=== PATIENT | female | born 1975 | race Caucasian/White ===

== ENCOUNTER 2024-05-16 20:55 | Inpatient (IN) | payer BC, SELFPAY ==
[2024-05-16 17:38] VITALS: BP 119/79
[2024-05-16 18:19] LABS: % Basophils 0.1 % (0-2); % Immature Granulocytes 1.4 % (0-0.5); % Lymphocytes 13.5 % (20.5-51.1); % Monocytes 4.1 % (1.7-9.3); % Neutrophils 80.9 % (42.2-75.2); Absolute Immature Granulocytes 0.1 10^3/uL (0-0.05); Absolute Lymphocytes 1.3 10^3/uL (1.2-3.4); Absolute Monocytes 0.4 10^3/uL (0.1-0.6); Absolute Neutrophils 7.5 10^3/uL (1.4-6.5); Hematocrit 30.6 % (37.0-47.0); Hemoglobin 10.8 g/dL (12.0-16.0); Mean Corp Hgb Conc. 35.3 g/dL (33.0-37.0); Mean Corpuscular Hgb 36.5 pg (27.0-31.0); Mean Corpuscular Volume 103.4 fL (81.0-99.0); Mean Platelet Volume 9.8 fL (7.4-10.4); Nucleated Red Blood Cells % 0 %; Platelet Count 282 10^3/uL (130-400); Red Blood Cell Count 2.96 10^6/uL (4.20-5.40); Red Cell Dist. Width 14.8 % (11.5-14.5); White Blood Cell Count 9.2 10^3/uL (4.8-10.8)
[2024-05-16 18:21] LABS: COVID-19 Antigen Negative (Negative)
[2024-05-16 18:38] LABS: Albumin 4.3 g/dl (3.5-5.0); Alkaline Phosphatase 188 U/L (38-126); Blood Urea Nitrogen 15 mg/dl (7-17); Calcium 10.2 mg/dl (8.4-10.2); Carbon Dioxide 17 mmol/L (22-30); Chloride 89 mmol/L (98-107); Glucose 122 mg/dl (70-99); Potassium 3.5 mmol/L (3.5-5.1); Sodium 127 mmol/L (135-145); Total Bilirubin 1.2 mg/dl (0.2-1.3); Total Protein 6.5 g/dl (6.3-8.2); eGFR > 60.00
[2024-05-16 18:48] LABS: ALT (SGPT) 44 U/L (0-35); AST (SGOT) 52 U/L (14-36)
[2024-05-16 18:59] VITALS: BMI 28.3
[2024-05-16 19:01] VITALS: BP 107/83
--- NOTE | 2024-05-16 19:15 | ED.GENMED ---
History of Present Illness
General
Chief Complaint: Dizziness
Source: patient
Time Seen by Provider: 05/16/24 18:50
History of Present Illness
History of Present Illness:
This patient is a 49-year-old female who says that about 2 weeks ago she started to feel like she had the flu described as fatigue, lightheadedness, and generalized malaise. She felt like she spontaneously got better, but then again about a week
ago she again developed the same symptoms. She also notes associated productive cough chest discomfort anorexia and nonbloody vomiting. She had a telehealth appointment on Friday and was prescribed prednisone and amoxicillin. Since that time,
she does not feel like she is getting any better. She is also having episodes of lightheadedness which is preventing her from being able to go to work. She denies abdominal pain, urinary symptoms, headache, neck pain, photophobia, rash, or other
symptoms.
Past History
Past History
ED Past Medical History: Arrthythmia (tachycardia ), Asthma, HTN and Psychiatric (Anxiety and depression.)
ED Past Surgical History: (X2) and Other ( wisdom teeth removal, and breast augmentation )
Social History
Tobacco: Smoker
Alcohol: Daily (2-3)
Drug: None
Personal:
Living: with family
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
Family History
Family History: Other (Noncontributory)
Phy Exam
Physical Exam
Physical Exam:
GENERAL: Alert , in no apparent distress
EYE: pupils equal and reactive
NECK: Supple, no significant adenopathy.
ENT: o/p clr, mm dry
CARDIAC: Regular rate and rhythm .
LUNGS: Clear breath sounds bilaterally, no acute respiratory distress, no wheezes/rales/rhonchi
ABDOMEN: Soft, without focal tenderness, no r/g, no cvat
NEUROLOGICAL: Alert and oriented, no focal neuro deficits
SKIN: Warm and dry, skin intact.
MUSCULOSKELETAL: No edema, well perfused.
PSYCH: Normal and appropriate interaction.
Course
Orders/Labs/Results
Orders:
Orders
05/16/24 Breakfast
Regular
At Your Request: Limited Participation
Fluid Restriction: 1440 mL/day (48 oz)
05/16/24 17:33
EKG [Electrocardiogram (*1)] Urgent
Reason for Study: Vertigo / Dizzy
EKG- Treatment ONCE
05/16/24 17:46
Alcohol Urgent
B-Hydroxybutyrate Urgent
Comment: ADD ON
COVID-19 Antigen Urgent
Source: Nasal Swab
Complete Blood Count/With Diff Urgent
Comprehensive Metabolic Panel Urgent
Glycohemoglobin (HgbA1c) Urgent
Iron Urgent
Comment: ADD ON
Magnesium Urgent
Comment: ADD ON
Phosphorus Urgent
Comment: ADD ON
Total Iron Binding Urgent
Comment: ADD ON
Influenza A+B Rapid Molecular Urgent
SARAH Source: Nasal Swab
Specimen Description:
05/16/24 19:25
0.9% Sodium Chloride 500 ml [Nss] 500 ml IV BOLUS
05/16/24 19:47
Osmolality, Random Urine Urgent
Date Specimen was Collected: 05/17/24
Time Specimen was Collected: 04:10
Urine Sodium Urgent
Date Specimen was Collected: 05/17/24
Time Specimen was Collected: 04:10
05/16/24 20:07
Urinalysis Reflex To Culture Urgent
Date Specimen was Collected: 05/17/24
Time Specimen was Collected: 04:09
05/16/24 20:16
Ipratropium/Albuterol Sulfate [Duoneb] 3 ml INH R NOW STA
Lorazepam [Ativan] 0.5 mg PO NOW STA
05/16/24 20:34
Admit/Transfer Patient As Directed
Co-Sign Provider:
Level of Care: Inpatient admission
Assign to:: Telemetry
Physician / Group: Mike
Diagnosis: Hyponatremia, Anion Gap Acidosis, Anemia
Reason for Telemetry: Arrhythmia
Date to Stop Telemetry: 05/19/24
Time to Stop Telemetry: 11:00
Reason for Hospitalization: Hyponatremia, Anion Gap Acidosis, Anemia
Expected length of stay greater than two midnights?: Yes
ELOS- Estimated Length of Stay in days: 3
I certify the patient meets the requirements for IP care: Yes
PRN Pain Medication Management As Directed
May give lesser potent ordered pain med per pt: Yes
preference::
Protocol:: Medication orders for pain may be administered in a
manner that supports deferring to patient preference
when the pt is:
- Requesting an ordered lesser potent pain medication.
Least to most potent pain medications are defined
as: acetaminophen < NSAID < tramadol < opioids
(morphine, oxycodone, hydromorphone).
- Requesting a lesser dose of the same medication IF
ORDERED.
- Requesting a less intrusive route of administration
if both routes are prescribed by the provider (PO <
IV).
05/16/24 20:35
CXR2 [CR Chest - 2 Views ] Urgent
Comment:
Reason For Exam: Cough, Hyponatremia
05/16/24 20:36
Code Status As Directed
Resuscitation Status: Full Code
05/16/24 22:39
0.9% Sodium Chloride 1000 ml [Nss] 1,000 ml IV 100 mls/hr
0.9% Sodium Chloride [Nss (Preservative Free)] See Protocol IV PRN PRN
Acetaminophen [Tylenol] 650 mg PO Q4HPRN PRN
Albuterol Nebs [Ventolin Nebules] 2.5 mg INH R Q4HPRN PRN
FOLic ACID [Folvite] 1 mg 0.9% Sodium Chloride 50 ml [Nss] 50 ml IV DAILYPRN
Lorazepam [Ativan] 1 mg IV Q1HPRN PRN
Lorazepam [Ativan] 1 mg PO Q2HPRN PRN
Lorazepam [Ativan] 2 mg IV Q1HPRN PRN
Ondansetron Injectable [Zofran] 4 mg IV Q6HPRN PRN
05/16/24 22:39
Case Management Consult Once
Case Management Consult: Other
Comment: Substance abuse counseling
DIETARY CONSULT Routine
Reason for Consult: Nutrition support, possible refeeding guidelines
NEPHROLOGY CONSULT Routine
Consulting Provider: Akash Lozano
Was physician already notified: Yes
Reason for consult: Hyponatremia, Anion Gap Acidosis
Urine Drug Abuse Screen Routine
Date Specimen was Collected: 05/17/24
Time Specimen was Collected: 04:10
Activity As Directed
Activity Level: Ambulate
With Assistance
EKG with chest pain [ECG as needed] As Directed
ECG as needed for:: Chest Pain
I/O [Intake/ Output] As Directed
Frequency: Per unit guidelines
MSAS SCORE As Directed
MSAS Score 0-4: Repeat MSAS every 2 hours until 0-4 for three consecutive assessments, then every 4 hours x 48
hours.
MSAS Score 5-7: For MILD withdrawl symptoms. Repeat MSAS and RASS every 2 hours
MSAS Score 8-11: For MODERATE withdrawal symptoms. Repeat MSAS and RASS every 1 hour. Consider ICU or IMU
level of care.
MSAS Score > 11: For SEVERE withdrawal symptoms. Repeat MSAS and RASS every 1 hour. Notify provider, consider
ICU level of care.
MSAS Additional Instructions: If no improvement or no decrease in score from severe to moderate within 12
hours, consult psychiatry
MSAS Notify Provider: Notify provider if patient requires more than 10 mg of Lorazepam in eight hour period.
Orthostatic Vital Signs As Directed
Orthostatic VS Frequency: BID
Pneumatic Compression Sleeves As Directed
Type: Knee high
Vital Signs As Directed
Frequency: Per unit guidelines
Weight As Directed
Frequency: Daily
Oxygen Therapy [O2 Therapy] [RESP] Routine
Titrate/Wean O2 to maintain O2 sat greater than (%): 94
DX Deep Vein Thrombosis Video Routine
05/16/24 22:48
B12 [Vitamin B12] Routine
Bordetella Pertussis IgA,G,M [S] Routine
Folate Routine
Lactate Level [Lactic Acid] Urgent
TSH Reflex To Free T4 Routine
05/17/24 00:14
BMP [Basic Metabolic Panel] Routine
05/17/24 05:40
Basic Metabolic Panel IN AM
Cortisol, Random IN AM
05/17/24 05:41
ACTH [Adrenocorticotropic Hormone] [S] IN AM
Complete Blood Count/No Diff IN AM
05/17/24 08:00
Budesonide/Formoterol 160/4.5 [Symbicort 160/4.5 Mcg Inhaler] 2 puff INH R BID
FOLic ACID [Folvite] 1 mg PO DAILY
Pantoprazole [Protonix] 40 mg PO DAILY
Thiamine Injection 200 mg IV Q12
05/19/24 11:00
DC Protocol for Telemetry ONCE
05/20/24 08:00
Thiamine HCl [Vitamin B1] 100 mg PO BID
Abnormal Lab Results
05/16/24
17:46
RBC 2.96 L 10^6/uL
(4.20-5.40)
Hgb 10.8 L g/dL
(12.0-16.0)
Hct 30.6 L %
(37.0-47.0)
MCV 103.4 H fL
(81.0-99.0)
MCH 36.5 H pg
(27.0-31.0)
RDW 14.8 H %
(11.5-14.5)
Abs Immat Gran (auto) 0.1 H 10^3/uL
(0-0.05)
Absolute Neuts (auto) 7.5 H 10^3/uL
(1.4-6.5)
Immature Gran % 1.4 H %
(0-0.5)
Neutrophils % 80.9 H %
(42.2-75.2)
Lymphocytes % 13.5 L %
(20.5-51.1)
Sodium 127 L mmol/L
(135-145)
Chloride 89 L mmol/L
(98-107)
Carbon Dioxide 17 L mmol/L
(22-30)
Glucose 122 H mg/dl
(70-99)
TIBC 178 L ug/dl
(265-497)
% Saturation 93 H %
(20-50)
AST 52 H U/L
(14-36)
ALT 44 H U/L
(0-35)
Alkaline Phosphatase 188 H U/L
(38-126)
05/16/24 17:46
05/16/24 17:46
Vital Signs
Initial and Last Documented VS:
Initial Vital Signs
Temp Pulse Resp BP Pulse Ox
97.9 F 128 16 119/79 99
05/16/24 17:38 05/16/24 17:38 05/16/24 17:38 05/16/24 17:38 05/16/24 17:38
Last Documented Vital Signs
Temp Pulse Resp BP Pulse Ox
98.3 F 73 18 111/74 98
05/18/24 11:55 05/18/24 11:55 05/18/24 11:55 05/18/24 11:55 05/18/24 11:55
*Critical Care Note
Total Time (30-74mins, 75-104mins- exclusive of procedures): Not Applicable
Update Note
Update Note:
Patient presents to the Emergency Department with ____fatigue, dizziness
Number and Complexity of Problems Addressed at the Encounter
� Chronic conditions affecting care:
� Acute Exacerbation and/or Progression of Chronic Illness:
� Differential Diagnosis includes: But not limited to influenza, COVID, viral illness, electrolyte disturbance, etc. etc.
Amount and/or Complexity of Data to be Reviewed and Analyzed
� I performed an independent evaluation of and my interpretation is:
EKG: Read by me, sinus tachycardia, no acute ischemia
CT:
Xrays:
Laboratory Studies: New anemia at 10.8 in comparison to March 2017, new hyponatremia 127 with low bicarb and chloride mild transaminitis, COVID and flu negative
Other:
� Review of other/old records reveals:
� Clinical information was obtained by an independent historian:
� Prescriptions/Medications Considered but not given:
� Further testing considered but not performed:
Risk of Complications and/or Morbidity or Mortality of Patient Management
� Social determinants of health affecting care:
� Discussion with other providers (PCP, Hospitalists, Consultants, etc):
� Escalation of care including admission/observation vs risk of discharge considered: Patient with flulike symptoms, new onset hyponatremia of unclear etiology, not related to any medications she is taking. Will check chest
x-ray, rule out pneumonia which could contribute to hyponatremia. Patient noted to be dehydrated and tachycardic as well. Will discuss with nephrology regarding 3% initiation, admission to hospitalist.
Case discussed with Dr. Lozano via [place] text, recommends pausing on 3% until urine results come back. This test has been ordered, Dr. Dacosta updated via [place] text.
ED Attending Note
-
Portions of this chart may have been created with voice recognition software.� Occasional wrong word or��sound alike� substitutions may have occurred due to the inherent limitations of voice recognition software.
Discharge Plan
Departure
Patient Disposition: Admit
Date of Disposition: 05/16/24
Time of Disposition: 19:47
Admit to: Telemetry
Admit to doctor: mike
Presentation/result/management discussed w/ accepting MD/DO: Hospitalist
Condition: Fair
Discharge Problem:
Acute hyponatremia
Interventions
Interventions:
*Risk Screen - Suicide Last Done: 05/16/24 17:38
*General Assessment Last Done: 05/16/24 18:54
*Neglect/Abuse Screening Last Done: 05/16/24 17:38
ED- Fall Risk Assessment Last Done: 05/16/24 23:54
*ED COVID-19 Vaccine History Last Done: 05/16/24 22:56
*Nursing Disposition Last Done: 05/17/24 20:45
ED- Neurological Assessment Last Done: 05/16/24 18:58
ED- Cardiac Assessment Last Done: 05/17/24 20:44
ED Swallowing Screen Last Done: 05/16/24 20:33
Discharge Date and Time
Discharge Date/Time: 05/17/24 20:49
[2024-05-16 20:03] VITALS: BP 127/71
[2024-05-16] MEDS: NSS 500 IV (20:13)
[2024-05-16] MEDS: ATIVAN 0.5 MG PO (20:34)
[2024-05-16] MEDS: DUONEB 3 ML INH (20:34)
[2024-05-16 21:00] VITALS: BP 111/69
--- NOTE | 2024-05-16 21:22 | HPS.HSE ---
Family Physician
-
Family Physician: CHRISTY Newberry
Chief Complaint
-
Dizziness, Lightheaded, Weakness
History of Present Illness
Patient is a 49y F with PMH significant for asthma and anxiety who presents to ED complaining of generalized weakness, lightheadedness and fatigue. Patient states that she developed cough, chest congestion about 2 weeks ago. Multiple family
members were ill with similar symptoms. She felt that her symptoms improved; however, they then recurred about one week ago. She developed hacking cough, SOB with exertion, generalized weakness and fatigue. She reports increased heartburn
symptoms, poor appetite. Over the past 3 days she has had episodes of lightheadedness, dizziness and 'nearly passing out'. No actual syncope, fall, injury, etc.
Patient states that she has had very little to eat / drink. She has not been urinating very much. She has had nausea with emesis - but she describes this mostly as post-tussive emesis / 'coughing up mucus'.
No abdominal pain.
She was started on amoxicillin and prednisone on Friday of this week for her persistent cough, etc. She has not appreciated any improvement in her symptoms.
Medical History
Past Medical History
Past Medical History: Reports Other
Additional Past Medical History:
Asthma
Anxiety
Hypertension
Past Surgical History: Reports Other
Additional Past Surgical History:
Septoplasty / Sinus Surgery
Breast Augmentation
x 2
T&A
Social History
Tobacco: Smoker (Current every day smoker. Approx 20 pack years total use.)
Alcohol: Daily (2-3 glasses of wine every day.)
Drug: None
Personal:
Living: With Family
Family History
Family History: Not pertinent
Allergies / Home Medications
Allergies reflects when Allergies were last updated in [facility].
Home Medications with original date entered in [facility]
Allergy/Medication List:
Allergies
Allergy/AdvReac Type Severity Reaction Status Date / Time
aspirin Allergy wheezing Verified 05/16/24 17:38
NSAIDS (Non-Steroidal Allergy Shortness Verified 05/16/24 17:38
Anti-Inflamma of Breath
Ragweed *RETIRED-12/10/11 Allergy Unknown Verified 05/16/24 17:38
[Ragweed]
DOGS/CATS/HORSES Allergy Unknown Uncoded 05/16/24 17:38
DUST,DUST MITES Allergy Unknown Uncoded 05/16/24 17:38
FEATHERS Allergy Unknown Uncoded 05/16/24 17:38
GRASS Allergy Unknown Uncoded 05/16/24 17:38
POLLEN Allergy Unknown Uncoded 05/16/24 17:38
Home Medications
albuterol sulfate 90 mcg/actuation aerosol inhaler 2 puff inhalation R Q6HPRN PRN sob 05/16/24
amoxicillin 500 mg capsule 500 mg PO TID Infection 05/16/24
budesonide-formoterol HFA 160 mcg-4.5 mcg/actuation aerosol inhaler (Symbicort) 2 inh inhalation R BID Lung/Breathing Issues 05/16/24
bupropion HCl 300 mg 24 hr tablet, extended release (Wellbutrin XL) 300 mg PO DAILY Mental Health 05/16/24
lorazepam 0.5 mg tablet 0.5 mg PO DAILYPRN PRN anixety 05/16/24
losartan 100 mg tablet 100 mg PO DAILY Blood Pressure 05/16/24
prednisone 10 mg tablets in a dose pack 10 mg PO DIRECTED inflammation 05/16/24
Review of Systems
-
History Source: Patient
A 12 point ROS was completed and negative except as noted: Yes
Constitutional: Reports Fatigue and Chills; Denies Fever
EENT: Denies Sore Throat
Respiratory: Reports Cough and Trouble Breathing
Cardiac: Reports Syncope (lightheadedness / near syncope); Denies Chest Pain or Palpitations
Abdomen/GI: Reports Nausea and Vomiting; Denies Abdominal Pain, Diarrhea, Constipated, Bloody Stools or Black Stools
: Reports Other (Decreased urination.); Denies Dysuria, Frequency, Flank Pain or Bleeding
Musculoskeletal: Denies Joint Pain or Edema
Neurological: Reports Dizzy, Headache and Weakness; Denies Numbness
Psych: Denies Depression or Anxiety
Physical Exam
Vital Signs
Vital Signs
Temp Pulse Resp BP Pulse Ox
97.9 F 109 16 107/83 100
05/16/24 17:38 05/16/24 19:01 05/16/24 19:01 05/16/24 19:01 05/16/24 19:01
Physical Exam
General: Other (49y F in no acute distress.)
HEENT: Other (Rounded facies, exophthalmus. Thick neck.)
Respiratory: Clear; No Wheezes, Rales or Rhonchi
Cardiac: S1/S2 and Tachycardia; No Murmur
GI: Soft, Non Tender, Non Distended and Normal Bowel Sounds
Musculoskeletal: No Clubbing, No Cyanosis and No Edema
Neuro: AO x 3 and Nonfocal/grossly intact
Laboratory Results
-
05/16/24 17:46
05/16/24 17:46
Laboratory Results
Total Bilirubin 1.2 mg/dl (0.2-1.3) 05/16/24 17:46
AST 52 U/L (14-36) H 05/16/24 17:46
ALT 44 U/L (0-35) H 05/16/24 17:46
Alkaline Phosphatase 188 U/L (38-126) H 05/16/24 17:46
Impression/Plan
-
A/P: Patient is a 49y F with PMH significant for asthma and anxiety who presents to ED complaining of two weeks of 'flu symptoms' and several days of lightheadedness, weakness, etc.
Hyponatremia
- Admit for further evaluation and treatment.
- Suspect this is hypovolemic hyponatremia given poor PO intake, N/V, tachycardia / relative hypotension, etc.
- Urine studies are pending for confirmation.
- NSS for now and repeat labs in 4 hours and again in the AM.
- Adjust treatment based on Na values / urine studies (when available) / etc.
- Nephrology evaluation for additional recommendations.
- Patient has exam features consistent with underling endocrinopathy - check TFTs, cortisol, ACTH.
- Follow for clinical improvement with improvement in Na levels.
URI
- Recent cough / cold symptoms. COVID / Flu are negative.
- Check CXR - still pending.
- Not febrile, hypoxemic, etc at present.
- Would hold further amoxicillin / prednisone for now.
Asthma without Acute Exacerbation
- Stable. Lungs are clear on exam. No wheezing.
- Continue Symbicort maintenance inhaler.
- Albuterol nebs PRN.
- Hold further steroid for now as noted above.
Anion Gap Metabolic Acidosis
- Unclear etiology of acidosis. AG on admission = 21.
- B-OH normal. Lactate still pending.
- No suspicious medications, etc.
- Follow for changes in labs / lytes with volume replacement.
- Nephrology evaluation as noted above.
Macrocytic Anemia
- No noted blood loss per patient.
- Macrocytosis with daily EtOH use suspicious for B12 deficiency or similar.
- Check B12 / folate.
- Follow for changes in H&H or any evidence of bleeding.
Alcohol Use Disorder
- Daily EtOH use per patient with underlying anxiety, macrocytic anemia, abnormal LFTs, etc.
- Follow MSAS. Ativan PRN.
- Thiamine / folate supplementation.
Anxiety / Depression
- Hold Wellbutrin acutely given potential contribution to hyponatremia.
- Ativan PRN as noted above.
DVT Prophylaxis: SCDs
Code Status: Full
[2024-05-16 21:29] LABS: B-Hydroxybutyrate 0.12 mmol/L (0.02-0.27)
[2024-05-16 23:16] VITALS: BP 110/76
[2024-05-16 23:16] LABS: Lactic Acid 5.4 mmol/L (0.7-2.0)
[2024-05-16 23:17] LABS: Iron 167 ug/dl (37-170); Magnesium 1.8 mg/dl (1.6-2.3); Phosphorus 2.6 mg/dl (2.5-4.5)
[2024-05-16 23:18] VITALS: BP 110/76
[2024-05-16 23:19] LABS: Alcohol None Detected
[2024-05-16 23:26] LABS: Percent Saturation 93 % (20-50); Total Iron Binding Capacity 178 ug/dl (265-497)
[2024-05-17] VITALS (18 sets, daily range): BP systolic 84–134; BP diastolic 46–92; PULSE 96–108; BMI 27.6
[2024-05-17] MEDS: MELATONIN 5 MG PO ×2 (00:10→22:37)
[2024-05-17] MEDS: TUMS CHEWABLE TABLET 200 MG PO ×2 (00:10→22:36)
[2024-05-17] MEDS: NSS 1000 IV ×3 (00:10→21:21)
[2024-05-17 00:25] LABS: TSH Reflex To Free T4 0.43 uIU/ml (0.47-4.68)
[2024-05-17 00:42] LABS: Blood Urea Nitrogen 21 mg/dl (7-17); Calcium 9.3 mg/dl (8.4-10.2); Carbon Dioxide 18 mmol/L (22-30); Chloride 93 mmol/L (98-107); Estimated Creatinine Clearance 80 ml/min; Glucose 129 mg/dl (70-99); Potassium 3.5 mmol/L (3.5-5.1); Sodium 126 mmol/L (135-145); eGFR > 60.00
[2024-05-17 01:31] LABS: Folate 1.3 ng/ml (2.76-20); Vitamin B12 432 pg/ml (239-931)
[2024-05-17 01:46] LABS: Free T4 1.27 ng/dl (0.78-2.19)
[2024-05-17] MEDS: VENTOLIN NEBULES 2.5 MG INH (04:17)
[2024-05-17 04:28] LABS: Urine Albumin 1+ (Neg - Trace); Urine Bilirubin Negative (Negative); Urine Character Slightly Cloudy (Clear); Urine Color Yellow; Urine Glucose Negative (Negative); Urine Ketone Negative (Negative); Urine Leukocyte Negative (Negative); Urine Nitrite Negative (Negative); Urine Occult Blood 1+ (Negative); Urine Specific Gravity 1.005 (<1.030); Urine Urobilinogen Negative (Neg - 1+); Urine pH 6.5 (5.0-9.0)
[2024-05-17 04:30] LABS: Osmolality Urine 309 mOsm/kg (300-900)
[2024-05-17 04:40] LABS: Amphetamines Negative (Negative); Barbiturates Negative (Negative); Benzodiazepines Positive (Negative); Buprenorphine Negative (Negative); Cocaine Negative (Negative); Marijuana Negative (Negative); Methadone Negative (Negative); Methamphetamines Negative (Negative); Opiates Negative (Negative); Phencyclidine Negative (Negative); Tricyclic Antidepressants Negative (Negative)
[2024-05-17 04:58] LABS: Urine Sodium 7 mmol/L (30-90)
[2024-05-17 04:59] LABS: Fentanyl, Urine Negative (Negative)
[2024-05-17 05:12] LABS: Urine Squamous Cell >30 /LPF (Few)
[2024-05-17 05:14] LABS: Urine Bacteria Moderate (Negative); Urine White Cell 0-2 /HPF (0-5)
[2024-05-17 06:24] LABS: Hematocrit 26.3 % (37.0-47.0); Hemoglobin 9.5 g/dL (12.0-16.0); Mean Corp Hgb Conc. 36.1 g/dL (33.0-37.0); Mean Corpuscular Hgb 37.1 pg (27.0-31.0); Mean Corpuscular Volume 102.7 fL (81.0-99.0); Mean Platelet Volume 9.7 fL (7.4-10.4); Platelet Count 203 10^3/uL (130-400); Red Blood Cell Count 2.56 10^6/uL (4.20-5.40); Red Cell Dist. Width 14.9 % (11.5-14.5); White Blood Cell Count 7.1 10^3/uL (4.8-10.8)
[2024-05-17 06:25] LABS: Blood Urea Nitrogen 21 mg/dl (7-17); Calcium 9.4 mg/dl (8.4-10.2); Carbon Dioxide 17 mmol/L (22-30); Chloride 96 mmol/L (98-107); Estimated Creatinine Clearance 72 ml/min; Glucose 122 mg/dl (70-99); Potassium 3.7 mmol/L (3.5-5.1); Sodium 127 mmol/L (135-145); eGFR > 60.00
[2024-05-17 06:45] LABS: Cortisol, Random 6.1 ug/dl
[2024-05-17] MEDS: FOLVITE 1 MG PO (07:25)
[2024-05-17] MEDS: THIAMINE INJECTION 200 MG IV ×2 (07:25→19:49)
[2024-05-17] MEDS: PROTONIX 40 MG PO (07:25)
[2024-05-17] MEDS: SYMBICORT 160/4.5 MCG INHALER 2 PUFF INH (08:00)
[2024-05-17 09:02] LABS: Glycohemoglobin (HgbA1c) 4.7 % (4.0-5.6)
--- NOTE | 2024-05-17 09:21 | CM ---
CM following re: discharge planning.
CM consulted for substance abuse counseling.
Reviewed pt's chart, met with pt.
Pt is a 49 year old female, admitted with primary dx of Hyponatremia.
Pt reports she lives with and 2 sons 11 and 17 year of age in a 2 [address]house, 1 step to enter. Pt described herself as independent in all areas [employer], works, drives.
CM consulted for substance abuse counseling. Substance abuse counseling provided. Pt admitted drinking daily, drink of choice - wine, 2-3 glasses after work. Pt expressed her agreement to meet with [facility] team. A referral to [facility] made.
PCP: Shari Esparza
Pharmacy: [facility]
D/C plan: home with [facility] to follow. to transport at discharge.
CM will follow with discharge plan updates as hospitalization progresses
--- NOTE | 2024-05-17 09:28 | W.CON.NEPH ---
Consultation
-
Date/Time Consultation Requested: 05/17/2024 7:30 AM
Date/Time Consultation Performed: 05/17/2024 9:00 AM
Requesting Provider: Dr. Benson
Performing Provider: Dr. Calixto
Reason for Consultation: Hyponatremia/HTN
Medical History
-
Chief Complaint: Hyponatremia/HTN
History of Present Illness:
Patient is a 49y F with PMH significant for asthma(maintained on Symbicort ), HTN (on losartan)and anxiety (on lorazepam and Wellbutrin) who presented to ED complaining of generalized weakness, lightheadedness and fatigue. Patient states that
she developed cough, chest congestion about 2 weeks ago. Multiple family members were ill with similar symptoms. She felt that her symptoms improved; however, they then recurred about one week ago. She developed hacking cough, SOB with exertion,
generalized weakness and fatigue. She reports increased heartburn symptoms, poor appetite. Over the past 3 days she has had episodes of lightheadedness, dizziness and 'nearly passing out'. No actual syncope, fall, injury, etc.
Patient states that she has had very little to eat / drink. She has not been urinating very much. She has had nausea with emesis - but she describes this mostly as post-tussive emesis / 'coughing up mucus'.
She was started on amoxicillin and prednisone on Friday of this week for her persistent cough, etc. when she presented to the hospital her sodium was 126. Nephrology was consulted for hyponatremia last evening she was provided normal saline.
Past Medical History
Asthma
Anxiety
Hypertension
Septoplasty / Sinus Surgery
Breast Augmentation
x 2
T&A
Social History
Tobacco: Smoker
Alcohol: Daily
Family History
No CKD
Allergies / Home Medications
Allergy/AdvReac Type Severity Reaction Status Date / Time
aspirin Allergy wheezing Verified 05/16/24 17:38
NSAIDS (Non-Steroidal Allergy Shortness Verified 05/16/24 17:38
Anti-Inflamma of Breath
Ragweed *RETIRED-12/10/11 Allergy Unknown Verified 05/16/24 17:38
[Ragweed]
DOGS/CATS/HORSES Allergy Unknown Uncoded 05/16/24 17:38
DUST,DUST MITES Allergy Unknown Uncoded 05/16/24 17:38
FEATHERS Allergy Unknown Uncoded 05/16/24 17:38
GRASS Allergy Unknown Uncoded 05/16/24 17:38
POLLEN Allergy Unknown Uncoded 05/16/24 17:38
�Medication �Instructions �Recorded �Confirmed �Type
albuterol sulfate 90 mcg/actuation 2 puff inhalation R Q6HPRN PRN sob 05/16/24 05/16/24 History
aerosol inhaler
amoxicillin 500 mg capsule 500 mg PO TID Infection 05/16/24 05/16/24 History
budesonide-formoterol HFA 160 2 inh inhalation R BID 05/16/24 05/16/24 History
mcg-4.5 mcg/actuation aerosol Lung/Breathing Issues
inhaler (Symbicort)
bupropion HCl 300 mg 24 hr tablet, 300 mg PO DAILY Mental Health 05/16/24 05/16/24 History
extended release (Wellbutrin XL)
lorazepam 0.5 mg tablet 0.5 mg PO DAILYPRN PRN anixety 05/16/24 05/16/24 History
losartan 100 mg tablet 100 mg PO DAILY Blood Pressure 05/16/24 05/16/24 History
prednisone 10 mg tablets in a dose 10 mg PO DIRECTED inflammation 05/16/24 05/16/24 History
pack
Review of Systems
-
History Source: Patient
All other systems: Negative unless noted
Constitutional: Fatigue
Respiratory: Cough
Abdomen/GI: Nausea, Vomiting and Diarrhea
: Other (Decreased urine output on presentation)
Neurological: Dizzy
Physical Exam
Vital Signs
Vital Signs
Temp Pulse Resp BP Pulse Ox
98 F 102 20 121/76 99
05/17/24 07:13 05/17/24 09:00 05/17/24 09:00 05/17/24 09:00 05/17/24 09:00
Lab Results
05/17/24 05:41
05/17/24 05:40
WBC 7.1 10^3/uL (4.8-10.8) 05/17/24 05:41
RBC 2.56 10^6/uL (4.20-5.40) L 05/17/24 05:41
Hgb 9.5 g/dL (12.0-16.0) L 05/17/24 05:41
Hct 26.3 % (37.0-47.0) L 05/17/24 05:41
Plt Count 203 10^3/uL (130-400) D 05/17/24 05:41
Sodium 127 mmol/L (135-145) L 05/17/24 05:40
Potassium 3.7 mmol/L (3.5-5.1) 05/17/24 05:40
Chloride 96 mmol/L (98-107) L 05/17/24 05:40
Carbon Dioxide 17 mmol/L (22-30) L 05/17/24 05:40
BUN 21 mg/dl (7-17) H 05/17/24 05:40
Creatinine 1.0 mg/dL (0.6-1.0) 05/17/24 05:40
eGFR > 60.00 05/17/24 05:40
Glucose 122 mg/dl (70-99) H 05/17/24 05:40
Calcium 9.4 mg/dl (8.4-10.2) 05/17/24 05:40
Phosphorus Cancelled 05/16/24 22:48
Albumin 4.3 g/dl (3.5-5.0) 05/16/24 17:46
Physical Exam
General: AOx3, Nontoxic , NAD
HEENT: PERRL, EOMI, Anicteric, Conjunctivae Clear, Ear/Nose Intact, Hearing Normal, Oropharynx Clear/Moist, Dentition Intact, Facial Symmetry, Neck Supple, Neck: Trachea Midline, No JVD and No Thyromegaly, no Bruits
Respiratory: Clear to auscultation bilaterally with normal lung exersion
Cardiac: S1/S2 and Regular Rate/Rhythm
Breast: Deferred by me
Abdomen: Soft, Nontender, Nondistended, Normal Bowel Sounds and No Hepatosplenomegaly
Rectal: Deferred by Provider
Genito-urinary: No Costovertebral Tenderness
Extremities: No Clubbing, No Cyanosis and No Edema
Skin: No Rash or open lesions
Neuro: Nonfocal/Grossly Intact, CN II-XII (Intact) and Strength (Musculoskeletal exam 5 out of 5 both upper and lower extremities)
Hematologic/Lymphatic: No Cervical Lymphadenopathy, No Submandibular Lymphadenopathy and No Supraclavicular Lymphadenopathy
Psych: Mood/afflect pleasant, Insight/judgement good and Appropriate
Vascular: plus 2 pedal and radial pulses
Data Reviewed
-
Radiology: Image Personally Visualized and interpreted (Chest x-ray reviewed: No evidence of pneumonia or congestive heart for)
Medical Tests (Nuc Med, Echo etc): Other (EKG report reviewed: Sinus tachycardia)
Labs: Labs Reviewed by me (BMP CBC urine sodium urine creatinine)
Old Records: Reviewed (Reviewed previous serum sodium level of 141 on 04/14/17)
Assessment/Plan
-
Impression:
Hyponatremia (suspected hypovolemic) 126
URI
Hypertension
Anxiety
Asthma
Alcohol and tobacco abuse
Anion gap metabolic acidosis (lactic acidosis noted)
Plan:
Hyponatremia:
-Urine sodium of 7 supports hypovolemic component
-However urine osmolality of 309 could also support excess ADH in the setting of URI
-Would continue normal saline for now we will follow-up with repeat electrolytes later this after
-Fluid restriction placed to 48 ounces daily
HTN
-Can restart losartan once blood pressure rebound
Metabolic acidosis
-Gapped with elevated lactic acidosis
-Maintain isotonic saline, likely precipitated by hypotension due to volume depletion
[2024-05-17 16:03] LABS: Carbon Dioxide 21 mmol/L (22-30); Chloride 95 mmol/L (98-107); Potassium 3.3 mmol/L (3.5-5.1); Sodium 127 mmol/L (135-145)
--- NOTE | 2024-05-17 16:21 | W.PN.HOSP.TC ---
Today's Communication/Plan
-
Assessment / Plan
Assessment / Plan
Gen-AAOx3, NAD
HEENT-NC, AT, anicteric, clear oral mm
Neck-supple
CV-reg, no M, +S1/S2
Lungs-clear B/L
Abd-soft, NT, ND
Musculoskeletal-no edema, no deformity
Skin-warm and dry
Neuro-grossly non-focal
Psych-calm, cooperative
Ms. Aleman is a 49-year-old female with a medical history of asthma, hypertension, and anxiety who presented with generalized weakness and fatigue. She has had congestion and a cough for approximately 2 weeks prior to arrival. Multiple family
members had similar symptoms. With the past 3 days prior to arrival she multiple episodes of near syncope with no actual syncope. She has had poor p.o. intake over the past 2 weeks due to her upper respiratory illness. She was started on
amoxicillin and prednisone approximately 1 week prior to arrival with no appreciable improvement in her symptoms. In the ED she was found to be hyponatremic. She tested negative for flu COVID. Chest imaging showed no acute abnormalities. She was
admitted for further evaluation and management of hyponatremia and upper respiratory infection.
Hyponatremia:
-Moderate with initial serum sodium of 127, has remained stable
-Likely hypovolemic hyponatremia considering poor p.o. intake in the setting of recent URI
-Low urine sodium also suggestive of hypovolemia
-Continue normal saline
-Nephrology following, recommendations appreciated
-Patient reports improvement in weakness and fatigue after IV fluid administration
-Continue close monitoring of serum sodium
Hypokalemia:
-Serum potassium 3.3, will replete and continue to monitor
URI:
-Respiratory panel negative for COVID and influenza, also negative for pertussis
-No evidence of bacterial pneumonia
-Continue supportive care, cough suppressant as needed
Gapped metabolic acidosis:
-Mild, resolved with fluid resuscitation
-Lactic acid also elevated, likely due to hypotension with hypovolemia, blood pressure now improved, repeat lactic acid until within normal limits
Alcohol use disorder:
-Benzodiazepines as needed
-Daily thiamine and folate
-Encourage abstinence
Abnormal LFTs:
-Transaminases and alk phos mildly elevated, likely due to alcohol use
-Monitor LFTs labs nor morning, if not resolving will obtain dedicated liver imaging
CODE STATUS:
Anticipated Discharge: 24 - 48 hours
Subjective/Interval History
-
Date of Service: May 17, 2024
Patient was seen and examined at bedside this morning. Feeling better now than when she first arrived.
Objective Data
-
Labs:
Laboratory Results
05/17/24 05/17/24 05/17/24
05:40 05:41 15:04
WBC 7.1
Hgb 9.5 L
Hct 26.3 L
Plt Count 203 D
Sodium 127 L 127 L
Potassium 3.7 3.3 L
Chloride 96 L 95 L
Carbon Dioxide 17 L 21 L
BUN 21 H
Creatinine 1.0
Glucose 122 H
Calcium 9.4
Vital Signs:
Vital Signs
Temp Pulse Resp BP Pulse Ox
98.6 F 100 19 125/90 98
05/17/24 15:17 05/17/24 15:45 05/17/24 15:45 05/17/24 15:15 05/17/24 14:45
Review of Systems
-
History Source: Patient
All other systems: Reviewed and negative
Respiratory: Reports Cough
Physical Exam
-
General: No Apparent Distress
[2024-05-17] MEDS: ATIVAN 1 MG PO (16:46)
[2024-05-17] MEDS: KCL 40 MEQ PO (16:46)
[2024-05-17 18:30] LABS: Lactic Acid 2.4 mmol/L (0.7-2.0)
--- NOTE | 2024-05-17 21:00 | PTCARENOTE ---
Received patient from ED via wheelchair. Patient stood and pivoted from wheelchair to bed with assistance. AAOx3, no current complaints of pain. Oriented patient to room and placed call leonard within reach.
[2024-05-17] MEDS: TESSALON PERLES 100 MG PO (21:36)
[2024-05-17] MEDS: SYMBICORT 160/4.5 MCG INHALER INH (22:42)
[2024-05-18 03:41] VITALS: BP 127/84
[2024-05-18 06:52] LABS: % Basophils 0.1 % (0-2); % Eosinophils 0.6 % (0-6); % Immature Granulocytes 1.3 % (0-0.5); % Lymphocytes 29.9 % (20.5-51.1); % Monocytes 4.7 % (1.7-9.3); % Neutrophils 63.4 % (42.2-75.2); Absolute Immature Granulocytes 0.1 10^3/uL (0-0.05); Absolute Lymphocytes 2.1 10^3/uL (1.2-3.4); Absolute Monocytes 0.3 10^3/uL (0.1-0.6); Absolute Neutrophils 4.4 10^3/uL (1.4-6.5); Hematocrit 24.5 % (37.0-47.0); Hemoglobin 8.4 g/dL (12.0-16.0); Mean Corp Hgb Conc. 34.3 g/dL (33.0-37.0); Mean Corpuscular Hgb 37.2 pg (27.0-31.0); Mean Corpuscular Volume 108.4 fL (81.0-99.0); Mean Platelet Volume 9.5 fL (7.4-10.4); Nucleated Red Blood Cells % 0 %; Platelet Count 169 10^3/uL (130-400); Red Blood Cell Count 2.26 10^6/uL (4.20-5.40); Red Cell Dist. Width 15.3 % (11.5-14.5); White Blood Cell Count 6.9 10^3/uL (4.8-10.8)
[2024-05-18 07:18] LABS: ALT (SGPT) 27 U/L (0-35); AST (SGOT) 58 U/L (14-36); Albumin 2.7 g/dl (3.5-5.0); Alkaline Phosphatase 163 U/L (38-126); Blood Urea Nitrogen 16 mg/dl (7-17); Calcium 8.4 mg/dl (8.4-10.2); Carbon Dioxide 22 mmol/L (22-30); Chloride 103 mmol/L (98-107); Direct Bilirubin 0.2 mg/dl (0.0-0.4); Estimated Creatinine Clearance 80 ml/min; Glucose 82 mg/dl (70-99); Magnesium 1.6 mg/dl (1.6-2.3); Phosphorus 1.9 mg/dl (2.5-4.5); Potassium 3.7 mmol/L (3.5-5.1); Sodium 133 mmol/L (135-145); Total Bilirubin 0.7 mg/dl (0.2-1.3); Total Protein 4.7 g/dl (6.3-8.2); eGFR > 60.00
[2024-05-18] MEDS: SYMBICORT 160/4.5 MCG INHALER 2 PUFF INH ×2 (07:44→19:17)
[2024-05-18 07:55] VITALS: BP 138/94
[2024-05-18] MEDS: NSS 1000 IV (08:06)
[2024-05-18] MEDS: PROTONIX 40 MG PO (08:06)
[2024-05-18] MEDS: FOLVITE 1 MG PO (08:07)
[2024-05-18] MEDS: THIAMINE INJECTION 200 MG IV ×2 (08:09→20:23)
[2024-05-18] MEDS: NEUTRA-PHOS POWDER PACKET 250 MG PO (10:05)
[2024-05-18 11:55] VITALS: BP 111/74
[2024-05-18 12:35] LABS: Lactic Acid 1.9 mmol/L (0.7-2.0)
[2024-05-18 12:54] LABS: Adrenocorticotropic Hormone <1.5 pg/mL (7.2-63.3)
--- NOTE | 2024-05-18 14:43 | W.PN.NEPH.PH ---
Today's Communication / Plan
-
can d/c further IVFs after current bag is completed
follow bmp
Assessment/Plan
-
Impression:
Hyponatremia (suspected hypovolemic) 126
URI
Hypertension
Anxiety
Asthma
Alcohol and tobacco abuse
Anion gap metabolic acidosis (lactic acidosis noted)
Plan:
Hyponatremia:
-Urine sodium of 7 supports hypovolemic component
-serum sodium correcting to 133 also support hypovolemic causality
-However urine osmolality of 309 could also support excess ADH in the setting of URI
-Fluid restriction placed to 48 ounces daily to continue another day
HTN
-Can restart losartan once blood pressure rebound
Metabolic acidosis
-Gapped with elevated lactic acidosis
-s/p isotonic saline, likely precipitated by hypotension due to volume depletion
-acidosis improving
-
-
Date of Service: May 18, 2024
CC / HPI / ROS
-
Chief Complaint:
Hyponatremia
History of Present Illness:
Serum sodium correcting to 133 following isotonic saline
hemodynamcially stable off anti htns (losartan)
Review of Systems:
non oliguric
Labs
-
Labs:
WBC 6.9 10^3/uL (4.8-10.8) 05/18/24 05:44
RBC 2.26 10^6/uL (4.20-5.40) L 05/18/24 05:44
Hgb 8.4 g/dL (12.0-16.0) L 05/18/24 05:44
Hct 24.5 % (37.0-47.0) L 05/18/24 05:44
Plt Count 169 10^3/uL (130-400) 05/18/24 05:44
Sodium 133 mmol/L (135-145) L 05/18/24 05:43
Potassium 3.7 mmol/L (3.5-5.1) 05/18/24 05:43
Chloride 103 mmol/L (98-107) 05/18/24 05:43
Carbon Dioxide 22 mmol/L (22-30) 05/18/24 05:43
BUN 16 mg/dl (7-17) 05/18/24 05:43
Creatinine 0.9 mg/dL (0.6-1.0) 05/18/24 05:43
eGFR > 60.00 05/18/24 05:43
Glucose 82 mg/dl (70-99) 05/18/24 05:43
Calcium 8.4 mg/dl (8.4-10.2) 05/18/24 05:43
Phosphorus 1.9 mg/dl (2.5-4.5) L 05/18/24 05:43
Albumin 2.7 g/dl (3.5-5.0) L D 05/18/24 05:43
Physical Exam
-
Vital Signs:
Vital Signs
Temp Pulse Resp BP Pulse Ox
98.3 F 73 18 111/74 98
05/18/24 11:55 05/18/24 11:55 05/18/24 11:55 05/18/24 11:55 05/18/24 11:55
Cardiovascular:: Regular rate and rhythm
Respiratory:: Bilateral: CTA
Lung Excursion:: Normal
Abdomen:: Nontender and Soft
Extremity Edema:: None: Bilateral:
Iglesias Catheter: No
--- NOTE | 2024-05-18 15:06 | W.PN.HOSP.TC ---
Today's Communication/Plan
-
Assessment / Plan
Assessment / Plan
Gen-AAOx3, NAD
HEENT-NC, AT, anicteric, clear oral mm
Neck-supple
CV-reg, no M, +S1/S2
Lungs-clear B/L
Abd-soft, NT, ND
Musculoskeletal-no edema, no deformity
Skin-warm and dry
Neuro-grossly non-focal
Psych-calm, cooperative
Ms. Aleman is a 49-year-old female with a medical history of asthma, hypertension, and anxiety who presented with generalized weakness and fatigue. She has had congestion and a cough for approximately 2 weeks prior to arrival. Multiple family
members had similar symptoms. With the past 3 days prior to arrival she multiple episodes of near syncope with no actual syncope. She has had poor p.o. intake over the past 2 weeks due to her upper respiratory illness. She was started on
amoxicillin and prednisone approximately 1 week prior to arrival with no appreciable improvement in her symptoms. In the ED she was found to be hyponatremic. She tested negative for flu COVID. Chest imaging showed no acute abnormalities. She was
admitted for further evaluation and management of hyponatremia and upper respiratory infection.
Hyponatremia:
-Moderate with initial serum sodium of 127, improved to 133 today
-Likely hypovolemic hyponatremia considering poor p.o. intake in the setting of recent URI
-Low urine sodium also suggestive of hypovolemia
-Will discontinue IV fluids, continue fluid restriction
-Nephrology following, recommendations appreciated
Hypokalemia:
-Resolved
Hypophosphatemia:
-Serum phosphorus 1.9, will replete
-Will continue to monitor
URI:
-Respiratory panel negative for COVID and influenza, also negative for pertussis
-No evidence of bacterial pneumonia
-Continue supportive care, cough suppressant as needed
Gapped metabolic acidosis:
-Resolved
-Lactic acid now within normal limits
Alcohol use disorder:
-Benzodiazepines as needed
-Daily thiamine and folate
-Encourage abstinence
Abnormal LFTs:
-Transaminases and alk phos mildly elevated, likely due to alcohol use
-Improving, will continue to monitor
-Recommend outpatient liver imaging
CODE STATUS: Full code
Anticipated Discharge: 24 - 48 hours
Subjective/Interval History
-
Date of Service: May 18, 2024
Patient was seen and examined at bedside this morning. Sitting in bed comfortably, no complaints. Serum sodium has improved.
Objective Data
-
Labs:
Laboratory Results
05/18/24 05/18/24
05:43 05:44
WBC 6.9
Hgb 8.4 L
Hct 24.5 L
Plt Count 169
Sodium 133 L
Potassium 3.7
Chloride 103
Carbon Dioxide 22
BUN 16
Creatinine 0.9
Glucose 82
Calcium 8.4
Total Bilirubin 0.7
AST 58 H
ALT 27
Alkaline Phosphatase 163 H
Vital Signs:
Vital Signs
Temp Pulse Resp BP Pulse Ox
98.3 F 73 18 111/74 98
05/18/24 11:55 05/18/24 11:55 05/18/24 11:55 05/18/24 11:55 05/18/24 11:55
I&O
05/17/24 05/18/24 05/19/24
06:59 06:59 06:59
Intake Total 240 / 240
Output Total 0 / 0
Balance 240 / 240
Review of Systems
-
History Source: Patient
All other systems: Reviewed and negative
Physical Exam
-
General: No Apparent Distress
[2024-05-18 15:55] VITALS: BP 133/90
--- NOTE | 2024-05-18 16:36 | CM ---
Spoke with pt she believes she will be dc tomorrow.
Contacted Rodrigo Esteban pt was not seen by Rodrigo .
Carlito assigned Yvonne Gutierrez to see her today .
PLAN Home no needs
[2024-05-18 19:05] VITALS: BP 142/99
[2024-05-18] MEDS: MELATONIN 5 MG PO (21:27)
[2024-05-18 23:00] VITALS: BP 147/99
[2024-05-19 03:15] VITALS: BP 146/104; BP 146/96; PULSE 108; PULSE 109
[2024-05-19 06:58] LABS: % Basophils 0.1 % (0-2); % Eosinophils 0.5 % (0-6); % Immature Granulocytes 0.7 % (0-0.5); % Lymphocytes 4.7 % (20.5-51.1); Absolute Immature Granulocytes 0.1 10^3/uL (0-0.05); Absolute Lymphocytes 0.4 10^3/uL (1.2-3.4); Absolute Monocytes 0.2 10^3/uL (0.1-0.6); Absolute Neutrophils 6.9 10^3/uL (1.4-6.5); Mean Corp Hgb Conc. 34.5 g/dL (33.0-37.0); Mean Corpuscular Volume 107.4 fL (81.0-99.0); Mean Platelet Volume 9.7 fL (7.4-10.4); Nucleated Red Blood Cells % 0 %; Platelet Count 186 10^3/uL (130-400); Red Cell Dist. Width 15.3 % (11.5-14.5); White Blood Cell Count 7.6 10^3/uL (4.8-10.8)
[2024-05-19] MEDS: ZOFRAN 4 MG IV (07:02)
--- NOTE | 2024-05-19 07:04 | PTCARENOTE ---
Patient with 1 large unmeasurable emesis at change of shift. Zofran given see MAY.
[2024-05-19 07:15] VITALS: BP 130/90
[2024-05-19 07:19] LABS: Blood Urea Nitrogen 13 mg/dl (7-17); Calcium 8.4 mg/dl (8.4-10.2); Carbon Dioxide 21 mmol/L (22-30); Chloride 104 mmol/L (98-107); Estimated Creatinine Clearance 102 ml/min; Glucose 103 mg/dl (70-99); Magnesium 1.3 mg/dl (1.6-2.3); Phosphorus 1.7 mg/dl (2.5-4.5); Potassium 3.8 mmol/L (3.5-5.1); Sodium 133 mmol/L (135-145); eGFR > 60.00
[2024-05-19] MEDS: SYMBICORT 160/4.5 MCG INHALER 2 PUFF INH ×2 (08:03→19:50)
[2024-05-19] MEDS: MAGNESIUM SULFATE 50 IV (09:55)
[2024-05-19] MEDS: THIAMINE INJECTION 200 MG IV ×2 (09:56→20:08)
[2024-05-19] MEDS: PROTONIX 40 MG PO (09:56)
[2024-05-19] MEDS: FOLVITE 1 MG PO (09:56)
[2024-05-19] MEDS: NEUTRA-PHOS POWDER PACKET 250 MG PO ×3 (09:56→15:52)
[2024-05-19 10:13] LABS: ALT (SGPT) 37 U/L (0-35); AST (SGOT) 61 U/L (14-36); Albumin 3.2 g/dl (3.5-5.0); Alkaline Phosphatase 189 U/L (38-126); Direct Bilirubin 0.3 mg/dl (0.0-0.4); Total Bilirubin 0.9 mg/dl (0.2-1.3); Total Protein 5.3 g/dl (6.3-8.2)
[2024-05-19] MEDS: ATIVAN 1 MG PO (10:22)
[2024-05-19 11:10] VITALS: BP 119/88
--- NOTE | 2024-05-19 12:07 | W.PN.NEPH.PH ---
Today's Communication / Plan
-
follow BMP
Assessment/Plan
-
Impression:
Hyponatremia (suspected hypovolemic) 126
URI
Hypertension
Anxiety
Asthma
Alcohol and tobacco abuse
Anion gap metabolic acidosis (lactic acidosis noted)
Plan:
follow BMP
no IVF
FR only for now
-
-
Date of Service: May 19, 2024
CC / HPI / ROS
-
Chief Complaint:
Hyponatremia
History of Present Illness:
Na stable 133 with NSS
Bp stable
URI sxs stable
Review of Systems:
non oliguric
no CP
Labs
-
Labs:
WBC 7.6 10^3/uL (4.8-10.8) 05/19/24 06:16
RBC 2.70 10^6/uL (4.20-5.40) L 05/19/24 06:16
Hgb 10.0 g/dL (12.0-16.0) L 05/19/24 06:16
Hct 29.0 % (37.0-47.0) L 05/19/24 06:16
Plt Count 186 10^3/uL (130-400) 05/19/24 06:16
eGFR > 60.00 05/19/24 06:16
Albumin 3.2 g/dl (3.5-5.0) L 05/19/24 06:16
Physical Exam
-
Vital Signs:
Vital Signs
Temp Pulse Resp BP Pulse Ox
99.2 F 107 15 130/90 95
05/19/24 07:15 05/19/24 08:07 05/19/24 08:07 05/19/24 07:15 05/19/24 08:07
Cardiovascular:: Regular rate and rhythm
Respiratory:: Bilateral: Coarse
Lung Excursion:: Normal
Abdomen:: Nontender and Soft
Bowel Sounds:: Normal
Extremity Edema:: None: Bilateral:
[2024-05-19 13:22] LABS: Blood Urea Nitrogen 14 mg/dl (7-17); Carbon Dioxide 23 mmol/L (22-30); Chloride 103 mmol/L (98-107); Estimated Creatinine Clearance 102 ml/min; Glucose 91 mg/dl (70-99); Magnesium 1.9 mg/dl (1.6-2.3); Phosphorus 1.7 mg/dl (2.5-4.5); Potassium 3.7 mmol/L (3.5-5.1); Sodium 130 mmol/L (135-145); eGFR > 60.00
--- NOTE | 2024-05-19 14:43 | CM ---
Patient with continued vomiting this am.
Monitor labs.
Plan: home no needs anticipated.
--- NOTE | 2024-05-19 14:57 | W.PN.HOSP.TC ---
Today's Communication/Plan
-
Assessment / Plan
Assessment / Plan
Gen-AAOx3, NAD
HEENT-NC, AT, anicteric, clear oral mm
Neck-supple
CV-reg, no M, +S1/S2
Lungs-clear B/L
Abd-soft, NT, ND
Musculoskeletal-no edema, no deformity
Skin-warm and dry
Neuro-grossly non-focal
Psych-calm, cooperative
Ms. Aleman is a 49-year-old female with a medical history of asthma, hypertension, and anxiety who presented with generalized weakness and fatigue. She has had congestion and a cough for approximately 2 weeks prior to arrival. Multiple family
members had similar symptoms. With the past 3 days prior to arrival she multiple episodes of near syncope with no actual syncope. She has had poor p.o. intake over the past 2 weeks due to her upper respiratory illness. She was started on
amoxicillin and prednisone approximately 1 week prior to arrival with no appreciable improvement in her symptoms. In the ED she was found to be hyponatremic. She tested negative for flu COVID. Chest imaging showed no acute abnormalities. She was
admitted for further evaluation and management of hyponatremia and upper respiratory infection.
Hyponatremia:
-Moderate with initial serum sodium of 127, was 130 today
-Likely hypovolemic hyponatremia considering poor p.o. intake in the setting of recent URI
-Low urine sodium also suggestive of hypovolemia
-Have discontinued IV fluids, continue fluid restriction
-Nephrology following, recommendations appreciated
Hypokalemia:
-Resolved
Hypophosphatemia:
-Persistent serum phosphorus 1.7 today, rebleeding
-Will continue to monitor
Hypomagnesemia:
-Serum magnesium 1.3 on labs this morning, repleted
-Will monitor
URI:
-Respiratory panel negative for COVID and influenza, also negative for pertussis
-No evidence of bacterial pneumonia
-Continue supportive care, cough suppressant as needed
Gapped metabolic acidosis:
-Resolved
-Lactic acid now within normal limits
Alcohol use disorder:
-Benzodiazepines as needed
-Daily thiamine and folate
-Encourage abstinence
Abnormal LFTs:
-Transaminases and alk phos mildly elevated, likely due to alcohol use
-Improving, will continue to monitor
-Recommend outpatient liver imaging
Tobacco abuse:
-Current everyday smoker
-Encourage cessation
CODE STATUS: Full code
Anticipated Discharge: 24 - 48 hours
Subjective/Interval History
-
Date of Service: May 19, 2024
Patient was seen and examined at bedside this morning. Was nauseous with vomiting this morning. Currently feels better. Electrolytes are abnormal and will replete. Lactic acid has resolved within normal limits.
Objective Data
-
Labs:
Laboratory Results
05/19/24 05/19/24
06:16 12:35
WBC 7.6
Hgb 10.0 L
Hct 29.0 L
Plt Count 186
Sodium 133 L 130 L
Potassium 3.8 3.7
Chloride 104 103
Carbon Dioxide 21 L 23
BUN 13 14
Creatinine 0.7 0.7
Glucose 103 H 91
Calcium 8.4 8.0 L
Total Bilirubin 0.9
AST 61 H
ALT 37 H
Alkaline Phosphatase 189 H
Vital Signs:
Vital Signs
Temp Pulse Resp BP Pulse Ox
98.3 F 112 16 119/88 100
05/19/24 11:10 05/19/24 11:10 05/19/24 11:10 05/19/24 11:10 05/19/24 11:10
I&O
05/18/24 05/19/24 05/20/24
06:59 06:59 06:59
Intake Total 240 / 240 660 / 660
Output Total 0 / 0
Balance 240 / 240 660 / 660
Review of Systems
-
History Source: Patient
All other systems: Reviewed and negative
Abdomen/GI: Reports Nausea and Vomiting
Physical Exam
-
General: No Apparent Distress
[2024-05-19 15:45] VITALS: BP 121/83
[2024-05-19 19:54] VITALS: BP 129/86
[2024-05-19 23:13] VITALS: BP 130/88
[2024-05-20 03:45] VITALS: BP 130/85
[2024-05-20 04:44] VITALS: BMI 27.9
[2024-05-20 07:30] VITALS: BP 143/97
[2024-05-20 07:36] LABS: % Basophils 0.4 % (0-2); % Eosinophils 1.2 % (0-6); % Immature Granulocytes 2.3 % (0-0.5); % Lymphocytes 23.1 % (20.5-51.1); Absolute Eosinophils 0.1 10^3/uL (0-0.7); Absolute Immature Granulocytes 0.1 10^3/uL (0-0.05); Absolute Lymphocytes 1.3 10^3/uL (1.2-3.4); Absolute Monocytes 0.3 10^3/uL (0.1-0.6); Absolute Neutrophils 3.8 10^3/uL (1.4-6.5); Hematocrit 26.6 % (37.0-47.0); Hemoglobin 9.1 g/dL (12.0-16.0); Mean Corp Hgb Conc. 34.2 g/dL (33.0-37.0); Mean Corpuscular Hgb 37.4 pg (27.0-31.0); Mean Corpuscular Volume 109.5 fL (81.0-99.0); Mean Platelet Volume 9.8 fL (7.4-10.4); Nucleated Red Blood Cells % 0 %; Platelet Count 157 10^3/uL (130-400); Red Blood Cell Count 2.43 10^6/uL (4.20-5.40); Red Cell Dist. Width 15.4 % (11.5-14.5); White Blood Cell Count 5.7 10^3/uL (4.8-10.8)
[2024-05-20] MEDS: SYMBICORT 160/4.5 MCG INHALER 2 PUFF INH ×2 (08:13→19:45)
[2024-05-20 08:30] LABS: Blood Urea Nitrogen 11 mg/dl (7-17); Carbon Dioxide 19 mmol/L (22-30); Chloride 104 mmol/L (98-107); Estimated Creatinine Clearance 103 ml/min; Glucose 68 mg/dl (70-99); Magnesium 1.9 mg/dl (1.6-2.3); Phosphorus 2.3 mg/dl (2.5-4.5); Potassium 3.2 mmol/L (3.5-5.1); Sodium 133 mmol/L (135-145); eGFR > 60.00
[2024-05-20] MEDS: KCL 270 MEQ IV (09:23)
[2024-05-20] MEDS: FOLVITE 1 MG PO (09:24)
[2024-05-20] MEDS: PROTONIX 40 MG PO (09:24)
[2024-05-20] MEDS: SODIUM BICARBONATE 50 MEQ IV (09:24)
[2024-05-20] MEDS: VITAMIN B1 100 MG PO ×2 (09:24→21:04)
[2024-05-20] MEDS: ATIVAN 1 MG PO (09:39)
[2024-05-20 11:00] VITALS: BP 152/100
--- NOTE | 2024-05-20 11:12 | CM ---
At the request of nursing asked to see patient re [facility] referral (at brothers request, not patients)
Patient was seen by [facility] on 05/18/24 and information was left.
CM saw patient bedside with brother and she declined [facility] coming to see her again, she has information and is aware of CM availability.
--- NOTE | 2024-05-20 14:06 | W.PN.NEPH.PH ---
Today's Communication / Plan
-
follow BMP
Assessment/Plan
-
Impression:
Hyponatremia (suspected hypovolemic) 126
URI
Hypertension
Anxiety
Asthma
Alcohol and tobacco abuse
Anion gap metabolic acidosis (lactic acidosis noted)
Plan:
follow BMP
no IVF
FR only for now
replete K
-
-
Date of Service: May 20, 2024
CC / HPI / ROS
-
Chief Complaint:
Hyponatremia
History of Present Illness:
Na stable 133 on FR
K low 3.2
Bp stable
URI sxs stable
Review of Systems:
non oliguric
no CP
Labs
-
Labs:
WBC 5.7 10^3/uL (4.8-10.8) 05/20/24 06:36
RBC 2.43 10^6/uL (4.20-5.40) L 05/20/24 06:36
Hgb 9.1 g/dL (12.0-16.0) L 05/20/24 06:36
Hct 26.6 % (37.0-47.0) L 05/20/24 06:36
Plt Count 157 10^3/uL (130-400) 05/20/24 06:36
eGFR > 60.00 05/20/24 06:36
Albumin 3.2 g/dl (3.5-5.0) L 05/19/24 06:16
Physical Exam
-
Vital Signs:
Vital Signs
Temp Pulse Resp BP Pulse Ox
98.8 F 104 18 152/100 99
05/20/24 11:00 05/20/24 11:00 05/20/24 11:00 05/20/24 11:00 05/20/24 11:00
Cardiovascular:: Regular rate and rhythm
Respiratory:: Bilateral: Coarse
Lung Excursion:: Normal
Abdomen:: Nontender and Soft
Bowel Sounds:: Normal
Extremity Edema:: None: Bilateral:
[2024-05-20 14:27] LABS: Blood Urea Nitrogen 10 mg/dl (7-17); Calcium 8.2 mg/dl (8.4-10.2); Carbon Dioxide 24 mmol/L (22-30); Chloride 102 mmol/L (98-107); Estimated Creatinine Clearance 90 ml/min; Glucose 89 mg/dl (70-99); Magnesium 1.7 mg/dl (1.6-2.3); Phosphorus 1.8 mg/dl (2.5-4.5); Potassium 3.5 mmol/L (3.5-5.1); Sodium 134 mmol/L (135-145); eGFR > 60.00
[2024-05-20 15:00] VITALS: BP 141/109
[2024-05-20] MEDS: KCL ELIXIR 40 MEQ PO (15:15)
[2024-05-20] MEDS: NEUTRA-PHOS POWDER PACKET 250 MG PO (15:15)
--- NOTE | 2024-05-20 16:28 | W.PN.HOSP.TC ---
Today's Communication/Plan
-
Assessment / Plan
Assessment / Plan
Gen-AAOx3, NAD
HEENT-NC, AT, anicteric, clear oral mm
Neck-supple
CV-reg, no M, +S1/S2
Lungs-clear B/L
Abd-soft, NT, ND
Musculoskeletal-no edema, no deformity
Skin-warm and dry
Neuro-grossly non-focal
Psych-calm, cooperative
Ms. Aleman is a 49-year-old female with a medical history of asthma, hypertension, and anxiety who presented with generalized weakness and fatigue. She has had congestion and a cough for approximately 2 weeks prior to arrival. Multiple family
members had similar symptoms. With the past 3 days prior to arrival she multiple episodes of near syncope with no actual syncope. She has had poor p.o. intake over the past 2 weeks due to her upper respiratory illness. She was started on
amoxicillin and prednisone approximately 1 week prior to arrival with no appreciable improvement in her symptoms. In the ED she was found to be hyponatremic. She tested negative for flu COVID. Chest imaging showed no acute abnormalities. She was
admitted for further evaluation and management of hyponatremia and upper respiratory infection.
Hyponatremia:
-Moderate with initial serum sodium of 127, improving, serum sodium was 133 today
-Likely hypovolemic hyponatremia considering poor p.o. intake in the setting of recent URI
-Low urine sodium also suggestive of hypovolemia
-Have discontinued IV fluids, continue fluid restriction
-Nephrology following, recommendations appreciated
Hypokalemia:
-Was 3.2 this morning, repleted
-Likely due to GI losses with multiple bowel movements over the past 24 hours
Hypophosphatemia:
-Persistent, serum phosphorus 2.3 this morning
-Will replete and continue to monitor
Hypomagnesemia:
-Resolved, monitor
URI:
-Respiratory panel negative for COVID and influenza, also negative for pertussis
-No evidence of bacterial pneumonia
-Continue supportive care, cough suppressant as needed
Gapped metabolic acidosis:
-Resolved
-Lactic acid now within normal limits
Alcohol use disorder:
-Benzodiazepines as needed
-Daily thiamine and folate
-Encourage abstinence
Abnormal LFTs:
-Transaminases and alk phos mildly elevated, likely due to alcohol use
-Improving, will continue to monitor
-Recommend outpatient liver imaging
Tobacco abuse:
-Current everyday smoker
-Encourage cessation
CODE STATUS: Full code
Anticipated Discharge: 24 - 48 hours
Subjective/Interval History
-
Date of Service: May 20, 2024
Patient was seen and examined at bedside this morning. She is no longer constipated and had multiple bowel movements over the past 24 hours. She has no pain or nausea currently. She still has electrolyte abnormalities and is pending repletion.
Objective Data
-
Labs:
Laboratory Results
05/20/24 05/20/24
06:36 13:43
WBC 5.7
Hgb 9.1 L
Hct 26.6 L
Plt Count 157
Sodium 133 L 134 L
Potassium 3.2 L 3.5
Chloride 104 102
Carbon Dioxide 19 L 24
BUN 11 10
Creatinine 0.7 0.8
Glucose 68 L 89
Calcium 8.0 L 8.2 L
Vital Signs:
Vital Signs
Temp Pulse Resp BP Pulse Ox
98.4 F 104 20 141/109 99
05/20/24 15:00 05/20/24 15:00 05/20/24 15:00 05/20/24 15:00 05/20/24 15:00
I&O
05/19/24 05/20/24 05/21/24
06:59 06:59 06:59
Intake Total 660 / 660 1200 / 1200
Balance 660 / 660 1200 / 1200
Review of Systems
-
History Source: Patient
All other systems: Reviewed and negative
Physical Exam
-
General: No Apparent Distress
[2024-05-20 16:47] LABS: Bordetella Pertussis Ab, IgG 3.83 IV (<=1.04); Bordetella Pertussis Ab, IgM 0.2 IV (<=1.1)
[2024-05-20 19:16] VITALS: BP 126/81; BP 130/92; BP 136/90; PULSE 100; PULSE 109; PULSE 98
[2024-05-20] MEDS: SENOKOT-S 1 TABLET PO (21:04)
[2024-05-20 23:01] VITALS: BP 136/100
[2024-05-21 03:45] VITALS: BP 144/97
[2024-05-21 05:08] VITALS: BMI 27.9
[2024-05-21 07:25] VITALS: BP 166/110
[2024-05-21 08:04] LABS: % Basophils 0.3 % (0-2); % Eosinophils 1.2 % (0-6); % Immature Granulocytes 1.5 % (0-0.5); % Lymphocytes 27.4 % (20.5-51.1); % Monocytes 8.6 % (1.7-9.3); Absolute Eosinophils 0.1 10^3/uL (0-0.7); Absolute Immature Granulocytes 0.1 10^3/uL (0-0.05); Absolute Lymphocytes 1.6 10^3/uL (1.2-3.4); Absolute Monocytes 0.5 10^3/uL (0.1-0.6); Absolute Neutrophils 3.5 10^3/uL (1.4-6.5); Hematocrit 26.6 % (37.0-47.0); Hemoglobin 9.1 g/dL (12.0-16.0); Mean Corp Hgb Conc. 34.2 g/dL (33.0-37.0); Mean Corpuscular Volume 108.1 fL (81.0-99.0); Nucleated Red Blood Cells % 0 %; Platelet Count 173 10^3/uL (130-400); Red Blood Cell Count 2.46 10^6/uL (4.20-5.40); Red Cell Dist. Width 15.6 % (11.5-14.5); White Blood Cell Count 5.8 10^3/uL (4.8-10.8)
[2024-05-21] MEDS: SYMBICORT 160/4.5 MCG INHALER 2 PUFF INH (08:22)
[2024-05-21 08:47] LABS: Blood Urea Nitrogen 9 mg/dl (7-17); Calcium 8.5 mg/dl (8.4-10.2); Carbon Dioxide 19 mmol/L (22-30); Chloride 104 mmol/L (98-107); Estimated Creatinine Clearance 103 ml/min; Glucose 77 mg/dl (70-99); Magnesium 1.5 mg/dl (1.6-2.3); Phosphorus 2.3 mg/dl (2.5-4.5); Sodium 134 mmol/L (135-145); eGFR > 60.00
[2024-05-21] MEDS: SENOKOT-S PO (08:56)
[2024-05-21] MEDS: FOLVITE 1 MG PO (09:00)
[2024-05-21] MEDS: PROTONIX 40 MG PO (09:00)
[2024-05-21] MEDS: VITAMIN B1 100 MG PO (09:00)
[2024-05-21] MEDS: NEUTRA-PHOS POWDER PACKET 250 MG PO (09:03)
[2024-05-21] MEDS: MAGNESIUM OXIDE 500 MG PO (09:03)
[2024-05-21] MEDS: COZAAR 100 MG PO (09:35)
[2024-05-21 11:03] VITALS: BP 133/87
[2024-05-21 11:11] LABS: B. Pertussis, IgG IB FHA Positive; B. Pertussis, IgG IB PT Positive; B. Pertussis, IgG IB PT100 Equivocal
--- NOTE | 2024-05-21 12:10 | W.DCSUMMARY ---
Discharge Summary
Discharge Data
Date of Admission: 05/16/24
Date of Discharge: 05/21/24
-
Pending Results: No
Hospital Course
Ms. Aleman is a 49-year-old female with a medical history of asthma, hypertension, tobacco use, and anxiety who presented with generalized weakness and fatigue. She has had congestion and a cough for approximately 2 weeks prior to arrival.
Multiple family members had similar symptoms. With the past 3 days prior to arrival she multiple episodes of near syncope with no actual syncope. She has had poor p.o. intake over the past 2 weeks due to her upper respiratory illness. She was
started on amoxicillin and prednisone approximately 1 week prior to arrival with no appreciable improvement in her symptoms. In the ED she was found to be hyponatremic. Her respiratory panel was negative for influenza, COVID-19, and pertussis.
Chest imaging showed no acute abnormalities. She was admitted for further evaluation and management of hyponatremia and upper respiratory infection.
She was given resuscitative IV fluids and placed on fluid restriction, following which had improvement in her serum sodium level. Low urine sodium levels supported the suspicion that she was hypovolemic in the setting of recent viral illness.
During this hospitalization, she had multiple large bowel movements and an episode of vomiting. She required aggressive repletion of her potassium, phosphorus, and magnesium all of which normalized with resolution of her GI symptoms. She had some
mild abnormalities in her liver function testing likely multifactorial due to alcohol use and viral illness with hypovolemia. She should have outpatient follow-up for repeat liver function testing and dedicated liver imaging as needed. She was
also encouraged to discontinue smoking. Labs showed a macrocytic anemia with a folate deficiency, iron levels were normal. She was treated with daily thiamine and folate while inpatient. Her hemoglobin levels remained stable around 10. She was
instructed to follow-up with her primary care physician and with a case technician for ongoing management of her macrocytic anemia.
At the time of hospital discharge, she was hemodynamically stable. She will be discharged to home with prescriptions for thiamine and folate, and a short course of magnesium oxide. She should follow-up with her primary care physician soon after
hospital discharge to arrange for repeat labs to monitor her electrolytes, her liver function, and her macrocytic anemia. She should follow-up with a case technician as needed for ongoing management of her macrocytic anemia.
Gen-AAOx3, NAD
HEENT-NC, AT, anicteric, clear oral mm
Neck-supple
CV-reg, no M, +S1/S2
Lungs-clear B/L
Abd-soft, NT, ND
Musculoskeletal-no edema, no deformity
Skin-warm and dry
Neuro-grossly non-focal
Psych-calm, cooperative
Discharge Plan
-
Patient Disposition: Home (Routine Discharge)
Discharge Diagnosis/Procedures: Near syncope, electrolyte derangements, macrocytic anemia
Diet: Restrict fluids to 64 oz
Activity: No restrictions
Activity Restrictions/Additional Instructions:
Ms. Aleman is a 49-year-old female with a medical history of asthma, hypertension, tobacco use, and anxiety who presented with generalized weakness and fatigue. She has had congestion and a cough for approximately 2 weeks prior to arrival.
Multiple family members had similar symptoms. With the past 3 days prior to arrival she multiple episodes of near syncope with no actual syncope. She has had poor p.o. intake over the past 2 weeks due to her upper respiratory illness. She was
started on amoxicillin and prednisone approximately 1 week prior to arrival with no appreciable improvement in her symptoms. In the ED she was found to be hyponatremic. Her respiratory panel was negative for influenza, COVID-19, and pertussis.
Chest imaging showed no acute abnormalities. She was admitted for further evaluation and management of hyponatremia and upper respiratory infection.
She was given resuscitative IV fluids and placed on fluid restriction, following which had improvement in her serum sodium level. Low urine sodium levels supported the suspicion that she was hypovolemic in the setting of recent viral illness.
During this hospitalization, she had multiple large bowel movements and an episode of vomiting. She required aggressive repletion of her potassium, phosphorus, and magnesium all of which normalized with resolution of her GI symptoms. She had some
mild abnormalities in her liver function testing likely multifactorial due to alcohol use and viral illness with hypovolemia. She should have outpatient follow-up for repeat liver function testing and dedicated liver imaging as needed. She was
also encouraged to discontinue smoking. Labs showed a macrocytic anemia with a folate deficiency, iron levels were normal. She was treated with daily thiamine and folate while inpatient. Her hemoglobin levels remained stable around 10. She was
instructed to follow-up with her primary care physician and with a case technician for ongoing management of her macrocytic anemia.
At the time of hospital discharge, she was hemodynamically stable. She will be discharged to home with prescriptions for thiamine and folate, and a short course of magnesium oxide. She should follow-up with her primary care physician soon after
hospital discharge to arrange for repeat labs to monitor her electrolytes, her liver function, and her macrocytic anemia. She should follow-up with a case technician as needed for ongoing management of her macrocytic anemia.
Referrals:
Shari Esparza CRNP [Family Provider] -
Prescriptions:
New
magnesium oxide 500 mg magnesium Tablet
500 mg PO DAILY 5 Days Qty: 5 0RF
folic acid 1 mg Tablet
1 mg PO DAILY 30 Days Qty: 30 0RF
thiamine mononitrate (vit B1) 100 mg Tablet
100 mg PO BID 30 Days Qty: 60 0RF
Continued
lorazepam 0.5 mg Tablet
0.5 mg PO DAILYPRN PRN (Reason: anixety)
albuterol sulfate 90 mcg/actuation Hfa Aerosol Inhaler
2 puff INHALATION R Q6HPRN PRN (Reason: sob)
losartan 100 mg Tablet
100 mg PO DAILY
bupropion HCl [Wellbutrin XL] 300 mg Tablet Extended Release 24 Hr
300 mg PO DAILY
budesonide-formoterol [Symbicort] 160-4.5 mcg/actuation Hfa Aerosol Inhaler
2 inh INHALATION R BID
Discontinued
amoxicillin 500 mg Capsule
500 mg PO TID
Rx Instructions:
for 10 days starting 05/05/24
prednisone 10 mg Tablets,Dose Pack
10 mg PO DIRECTED
Rx Instructions:
starting 05/05/24 take 30mg daily for 3 then 20mg daily then 10mg daily for 3 days for total of 9 days
Discharge Orders:
Discharge Patient (As Directed); Ordered 05/21/24
Ordered By: Akash Jin
Discharge Date and Time
Print Language: KAZAKH
--- NOTE | 2024-05-21 16:15 | CM ---
entered order for discharge.
Yvonne Wallace called to say pt was seen she declined [facility] recourses but did take information.
Spoke with pt she said her mom Angelica will drive her home.
She declined VN at tx.
PLAN Home no needs
== END 2024-05-21 14:00 | disposition home or self-care (01) | DRG 641 ==
LOC: 4 EAST ACU 20:55
PROVIDERS: ADMITTING PHYSICIAN Hospitalist; ATTENDING PHYSICIAN Internal Medicine; EMERGENCY PHYSICIAN Emergency Medicine; FAMILY PHYSICIAN Nurse Practitioner; OTHER PHYSICIAN Specialist
DX: E87.1 Hypo-osmolality and hyponatremia (principal); E87.6 Hypokalemia; E87.20 Acidosis, unspecified; J06.9 Acute upper respiratory infection, unspecified; F17.200 Nicotine dependence, unspecified, uncomplicated; D53.9 Nutritional anemia, unspecified; I10 Essential (primary) hypertension; F41.9 Anxiety disorder, unspecified; J45.909 Unspecified asthma, uncomplicated; E83.39 Other disorders of phosphorus metabolism; E83.42 Hypomagnesemia; F10.10 Alcohol abuse, uncomplicated; Z11.52 Encounter for screening for COVID-19; R11.2 Nausea with vomiting, unspecified; D75.89 Other specified diseases of blood and blood-forming organs; E86.1 Hypovolemia; F32.A Depression, unspecified; Z79.899 Other long term (current) drug therapy
CPT/HCPCS: 71046; 80048; 80051; 80053; 80306; 80307; 81003; 81015; 82010; 82024; 82077; 82248; 82533; 82607; 82746; 83036; 83540; 83550; 83605; 83735; 83935; 84100; 84300; 84439; 84443; 85025; 85027; 86615; 87086; 87502; 87798; 87811; 93005; 94640; 96360; 99285

== ENCOUNTER 2025-02-08 01:08 | Inpatient (IN) | payer BC, SELFPAY ==
[2025-02-07 22:09] VITALS: BP 92/50
[2025-02-07 22:43] LABS: Hematocrit 30.9 % (37.0-47.0); Hemoglobin 10.1 g/dL (12.0-16.0); Mean Corp Hgb Conc. 32.7 g/dL (33.0-37.0); Mean Corpuscular Volume 100.7 fL (81.0-99.0); Nucleated Red Blood Cells % 0 %; Platelet Count 229 10^3/uL (130-400); Red Cell Dist. Width 13.9 % (11.5-14.5)
[2025-02-07 22:56] LABS: ALT (SGPT) 58 U/L (0-35); AST (SGOT) 152 U/L (14-36); Albumin 3.3 g/dl (3.5-5.0); Alkaline Phosphatase 363 U/L (38-126); Blood Urea Nitrogen 9 mg/dl (7-17); Calcium 8.3 mg/dl (8.4-10.2); Carbon Dioxide 22 mmol/L (22-30); Chloride 100 mmol/L (98-107); Glucose 106 mg/dl (70-99); Potassium 3.2 mmol/L (3.5-5.1); Sodium 131 mmol/L (135-145); Total Protein 6.0 g/dl (6.3-8.2); eGFR 31.77
[2025-02-07 23:08] VITALS: BP 81/49; BMI 28.8
[2025-02-07 23:20] VITALS: BP 95/73
[2025-02-07] MEDS: NSS 1000 IV (23:20)
[2025-02-07 23:30] VITALS: BP 97/67
[2025-02-08] VITALS (10 sets, daily range): BP systolic 92–165; BP diastolic 60–114; PULSE 124–130; BMI 29.2
--- NOTE | 2025-02-08 00:25 | ED.GENMED ---
History of Present Illness
General
Chief Complaint: Fainting Sensation
Time Seen by Provider: 02/08/25 00:16
History of Present Illness
History of Present Illness:
Patient is a 50-year-old female with a history of hypertension, asthma, depression who presents to the emergency department with generalized weakness. Her is admitted upstairs with renal cancer and renal failure. She notes that people were
telling her she did not look well today and sent her to the emergency department for evaluation. She reports poor p.o. intake over the past few days as she 'has not had time'. She denies pain anywhere at this time.
Past History
Past History
ED Past Medical History: Arrthythmia (tachycardia ), Asthma, HTN and Psychiatric (Anxiety and depression.)
ED Past Surgical History: (X2) and Other ( wisdom teeth removal, and breast augmentation )
Social History
Tobacco: Smoker
Alcohol: Daily (2-3)
Drug: None
Personal:
Living: with family
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
Family History
Family History: Other (Noncontributory)
Phy Exam
Physical Exam
Physical Exam:
GENERAL APPEARANCE: Tired appearing, generally ill-appearing
EYES lids/conjunctiva normal
EARS/NOSE/THROAT Mucous membranes dry,
HEAD/NECK normocephalic atraumatic, neck is supple.
RESPIRATORY respiratory effort normal, speaks in full sentences, no accessory muscle use. Lungs clear to auscultation without rhonchi, wheezes, rales
CARDIAC Regular rate and rhythm, no edema.
ABDOMINAL Soft, ND/NT.
MUSCLES/EXTREMITIES No abnormal range of motion, no swelling.
SKIN Warm, pink and dry. No rashes
NEUROLOGICAL Speech is clear and appropriate.
PSYCH depressed affect. Patient denies suicidality
Course
Orders/Labs/Results
Orders:
Orders
02/07/25 22:12
ECG [Electrocardiogram (*1)] Urgent
Reason for Study: Syncope
EKG- Treatment ONCE
02/07/25 22:35
Complete Blood Count/With Diff Urgent
Comprehensive Metabolic Panel Urgent
02/07/25 23:20
0.9% Sodium Chloride 1000 ml [Nss] 1,000 ml IV BOLUS
02/08/25 00:24
0.9% Sodium Chloride 1000 ml [Nss] 1,000 ml IV BOLUS
02/08/25 00:27
0.9% Sodium Chloride 1000 ml [Nss] 1,000 ml IV BOLUS
02/08/25 00:35
Alcohol Urgent
Magnesium Urgent
Comment: ADD ON
Phosphorus Urgent
Comment: ADD ON
02/08/25 00:50
Acetaminophen [Tylenol] 650 mg PO NOW STA
02/08/25 00:59
Add On- LAB Urgent
Tests Added?: Magnesium, Phosphorus
02/08/25 01:00
Admit/Transfer Patient As Directed
Co-Sign Provider:
Level of Care: Inpatient admission
Assign to:: Telemetry
Physician / Group: Marcelino
Diagnosis: EVITA, Hyponatremia, Hypokalemia
Reason for Telemetry: Arrhythmia
Date to Stop Telemetry: 02/11/25
Time to Stop Telemetry: 11:00
Reason for Hospitalization: EVITA, Hyponatremia, Hypokalemia
Expected length of stay greater than two midnights?: Yes
ELOS- Estimated Length of Stay in days: 3
I certify the patient meets the requirements for IP care: Yes
PRN Pain Medication Management As Directed
May give lesser potent ordered pain med per pt: Yes
preference::
Protocol:: Medication orders for pain may be administered in a
manner that supports deferring to patient preference
when the pt is:
- Requesting an ordered lesser potent pain medication.
Least to most potent pain medications are defined
as: acetaminophen < NSAID < tramadol < opioids
(morphine, oxycodone, hydromorphone).
- Requesting a lesser dose of the same medication IF
ORDERED.
- Requesting a less intrusive route of administration
if both routes are prescribed by the provider (PO <
IV).
02/08/25 01:01
Code Status As Directed
Resuscitation Status: Full Code
02/11/25 11:00
DC Protocol for Telemetry ONCE
Abnormal Lab Results
02/07/25 02/08/25
22:35 00:35
RBC 3.07 L 10^6/uL
(4.20-5.40)
Hgb 10.1 L g/dL
(12.0-16.0)
Hct 30.9 L %
(37.0-47.0)
MCV 100.7 H fL
(81.0-99.0)
MCH 32.9 H pg
(27.0-31.0)
MCHC 32.7 L g/dL
(33.0-37.0)
Absolute Lymphs (auto) 4.2 H 10^3/uL
(1.2-3.4)
Absolute Monos (auto) 0.7 H 10^3/uL
(0.1-0.6)
Sodium 131 L mmol/L
(135-145)
Potassium 3.2 L mmol/L
(3.5-5.1)
Creatinine 1.9 H mg/dL
(0.6-1.0)
Glucose 106 H mg/dl
(70-99)
Calcium 8.3 L mg/dl
(8.4-10.2)
Magnesium 1.2 L mg/dl
(1.6-2.3)
AST 152 H U/L
(14-36)
ALT 58 H U/L
(0-35)
Alkaline Phosphatase 363 H U/L
(38-126)
Total Protein 6.0 L g/dl
(6.3-8.2)
Albumin 3.3 L g/dl
(3.5-5.0)
02/07/25 22:35
02/07/25 22:35
Vital Signs
Initial and Last Documented VS:
Initial Vital Signs
Temp Pulse Resp BP
97.4 F 64 22 92/50
02/07/25 22:09 02/07/25 22:09 02/07/25 22:09 02/07/25 22:09
Last Documented Vital Signs
Temp Pulse Resp BP Pulse Ox
97.4 F 104 20 100/60 98
02/07/25 22:09 02/08/25 01:30 02/08/25 01:30 02/08/25 01:00 02/08/25 01:00
*Pulse Oximetry
SaO2: 96
Oxygen Mode of Delivery: Room air
Patient hypoxic: no
*Critical Care Note
Total Time (30-74mins, 75-104mins- exclusive of procedures): Not Applicable
ED Attending Note
ED Attending Note
ED Attending Note:
Patient presents with poor p.o. intake, generalized weakness. On arrival patient is hypotensive and appears dehydrated. Lab work showing hyponatremia, hypokalemia and EVITA consistent with hypovolemic state. Also notably elevated alkaline
phosphatase and LFTs. Patient does note drinking alcohol daily. Will send ethanol level. Will give IV fluids and admit for continued resuscitation
-
Portions of this chart may have been created with voice recognition software.� Occasional wrong word or��sound alike� substitutions may have occurred due to the inherent limitations of voice recognition software.
Discharge Plan
Departure
Patient Disposition: Admit
Date of Disposition: 02/08/25
Time of Disposition: 00:29
Presentation/result/management discussed w/ accepting MD/DO: Hospitalist
Discharge Problem:
EVITA (acute kidney injury), Acute dehydration, Acute hyponatremia, Acute hypokalemia
Interventions
Interventions:
*Risk Screen - Suicide Last Done: 02/07/25 22:09
*General Assessment Last Done: 02/07/25 23:10
*Neglect/Abuse Screening Last Done: 02/07/25 22:09
*ED- Fall Risk Assessment Last Done: 02/07/25 23:10
*ED COVID-19 Vaccine History Last Done: 02/07/25 23:10
*ED Influenza Vaccine History Last Done: 02/07/25 23:10
ED- Pulmonary Assessment Last Done: 02/07/25 23:12
ED- Neurological Assessment Last Done: 02/07/25 23:12
ED- Cardiac Assessment Last Done: 02/07/25 23:12
[2025-02-08] MEDS: NSS 1000 IV ×3 (00:30→14:51)
[2025-02-08] MEDS: TYLENOL 650 MG PO ×2 (00:53→14:49)
--- NOTE | 2025-02-08 01:06 | HPS.HSE ---
Family Physician
-
Family Physician: CHRISTY Newberry
Chief Complaint
-
Weakness
History of Present Illness
Patient is a 50y F with PMH significant for anxiety and asthma who presents to ED complaining of generalized weakness and fatigue. Patient reports significant recent social stressors with both her and her child currently hospitalized.
Patient states that she has not been eating / drinking well. She reports feeling extreme fatigue and is sleeping long hours. Patient reports that she typically drinks 4-5 glasses of wine per week; however, she notes that this 'may be more'
recently due to her aforementioned stressors.
Patient denies any issues with urination. She denies any fevers / chills, cough, chest pain, etc.
She reports lightheadedness with standing, but no LOC or syncope.
She denies any volume losses including N/V/D.
Medical History
Past Medical History
Past Medical History: Reports Other
Additional Past Medical History:
Asthma
Anxiety
Hypertension
Past Surgical History: Reports Other
Additional Past Surgical History:
Septoplasty / Sinus Surgery
Breast Augmentation
x 2
T&A
Social History
Tobacco: Smoker (Current every day smoker. Approx 20 pack years total use.)
Alcohol: Daily (2-3 glasses of wine every day.)
Drug: None
Personal:
Living: With Family
Family History
Family History: Not pertinent
Allergies / Home Medications
Allergies reflects when Allergies were last updated in [facility].
Home Medications with original date entered in [facility]
Allergy/Medication List:
Allergies
Allergy/AdvReac Type Severity Reaction Status Date / Time
aspirin Allergy wheezing Verified 02/07/25 22:11
cat dander Allergy Unknown Verified 02/07/25 22:11
dog dander Allergy Unknown Verified 02/07/25 22:11
feathers Allergy Unknown Verified 02/07/25 22:11
grass pollen Allergy Unknown Verified 02/07/25 22:11
horse dander Allergy Unknown Verified 02/07/25 22:11
house dust Allergy Unknown Verified 02/07/25 22:11
house dust mite Allergy Unknown Verified 02/07/25 22:11
NSAIDS (Non-Steroidal Allergy Shortness Verified 02/07/25 22:11
Anti-Inflamma of Breath
pollen extracts Allergy Unknown Verified 02/07/25 22:11
Ragweed *RETIRED-12/10/11 Allergy Unknown Verified 02/07/25 22:11
(Ragweed)
Home Medications
albuterol sulfate 90 mcg/actuation aerosol inhaler 2 puff inhalation R Q6HPRN PRN sob 05/16/24
budesonide-formoterol HFA 160 mcg-4.5 mcg/actuation aerosol inhaler (Symbicort) 2 inh inhalation R BID Lung/Breathing Issues 05/16/24
bupropion HCl 300 mg 24 hr tablet, extended release (Wellbutrin XL) 300 mg PO DAILY Mental Health 05/16/24
lorazepam 0.5 mg tablet 0.5 mg PO DAILYPRN PRN anixety 05/16/24
losartan 100 mg tablet 100 mg PO DAILY Blood Pressure 05/16/24
folic acid 1 mg tablet 1 mg PO DAILY 30 days #30 tabs 05/21/24
magnesium oxide 500 mg PO DAILY 5 days #5 tabs 05/21/24
thiamine mononitrate (vit B1) 100 mg tablet 100 mg PO BID 30 days #60 tabs 05/21/24
Review of Systems
-
History Source: Patient
A 12 point ROS was completed and negative except as noted: Yes
Constitutional: Reports Fatigue; Denies Fever or Chills
EENT: Denies Sore Throat
Respiratory: Denies Cough or Trouble Breathing
Cardiac: Reports Other (Lightheaded); Denies Chest Pain, Diaphoresis or Palpitations
Abdomen/GI: Reports Anorexia; Denies Abdominal Pain, Nausea, Vomiting or Diarrhea
: Denies Dysuria, Frequency, Flank Pain or Bleeding
Musculoskeletal: Reports Edema; Denies Joint Pain
Neurological: Reports Dizzy; Denies Headache, Weakness or Numbness
Psych: Reports Depression; Denies Anxiety
Physical Exam
Vital Signs
Vital Signs
Temp Pulse Resp BP Pulse Ox
97.4 F 107 14 100/60 98
02/07/25 22:09 02/08/25 01:00 02/08/25 01:00 02/08/25 01:00 02/08/25 01:00
Physical Exam
General: Other (50y F in no acute distress.)
HEENT: Other (Thick neck. No appreciable JVD. Exophthalmus.)
Respiratory: Clear; No Wheezes, Rales or Rhonchi
Cardiac: S1/S2, Regular Rhythm and Murmur (II/ ELGIN)
GI: Soft, Non Tender, Non Distended and Normal Bowel Sounds
Musculoskeletal: No Clubbing, No Cyanosis and Other (Trace - 1+ edema at b/l ankles.)
Neuro: AO x 3 and Nonfocal/grossly intact
Laboratory Results
-
02/07/25 22:35
02/07/25 22:35
Laboratory Results
Total Bilirubin 0.9 mg/dl (0.2-1.3) 02/07/25 22:35
AST 152 U/L (14-36) H 02/07/25 22:35
ALT 58 U/L (0-35) H 02/07/25 22:35
Alkaline Phosphatase 363 U/L (38-126) H 02/07/25 22:35
Impression/Plan
-
A/P: Patient is a 50y F with PMH significant for anxiety and asthma / COPD who presents to ED complaining of generalized weakness and fatigue.
EVITA
Hyponatremia
Hypokalemia
- Admit for further evaluation and treatment.
- SCr = 1.9 compared to baseline of 0.7.
- No flank pain or changes in urination. No concurrent elevation in BUN.
- Hold ARB acutely.
- IVF / volume replacement and follow for improvement.
- Check Mg / PO4 and correct lytes as needed.
- Check renal US for further evaluation.
- Consider Nephrology evaluation if no improvement.
Chronic Macrocytic Anemia
- Stable. Hgb is at / near known baseline.
- Likely related to EtOH use.
- Thiamine / folate supplementation as noted below.
- Follow for any changes.
Alcohol Use Disorder
Abnormal LFTs
- Daily EtOH use per patient with underlying anxiety, macrocytic anemia, abnormal LFTs, etc.
- Alcohol level is positive (114) at present.
- Follow MSAS. Ativan PRN.
- Thiamine / folate supplementation.
- Abnormal LFTs likely due to ongoing EtOH use.
- Check abdominal US for evaluation / features of cirrhosis, etc.
Anxiety / Depression
- Continue home regimen of Wellbutrin.
- Ativan PRN as noted above.
- Significant recent stressors noted.
Pituitary Deficiency
- Labs done during prior hospitalization including suppressed levels of ACTH, cortisol and TSH.
- Check MRI for evidence of pituitary mass / lesion.
- Repeat TSH. Consider additional hormone testing if needed.
DVT Prophylaxis: Subcut Heparin
Code Status: Full
[2025-02-08 01:12] LABS: Magnesium 1.2 mg/dl (1.6-2.3)
[2025-02-08] MEDS: NSS with KCL 40 MEQ 1000 IV (02:34)
[2025-02-08] MEDS: ATIVAN 1 MG PO ×3 (02:37→20:20)
[2025-02-08 07:05] LABS: ALT (SGPT) 43 U/L (0-35); AST (SGOT) 104 U/L (14-36); Albumin 2.6 g/dl (3.5-5.0); Alkaline Phosphatase 317 U/L (38-126); Blood Urea Nitrogen 8 mg/dl (7-17); Calcium 7.3 mg/dl (8.4-10.2); Carbon Dioxide 22 mmol/L (22-30); Chloride 110 mmol/L (98-107); Estimated Creatinine Clearance 56 ml/min; Glucose 73 mg/dl (70-99); Potassium 3.8 mmol/L (3.5-5.1); Sodium 137 mmol/L (135-145); Total Protein 5.0 g/dl (6.3-8.2); eGFR 50.10
[2025-02-08 07:19] LABS: Hematocrit 26.4 % (37.0-47.0); Hemoglobin 8.6 g/dL (12.0-16.0); Mean Corp Hgb Conc. 32.6 g/dL (33.0-37.0); Mean Corpuscular Volume 100.8 fL (81.0-99.0); Platelet Count 148 10^3/uL (130-400); Red Cell Dist. Width 13.8 % (11.5-14.5)
[2025-02-08] MEDS: SYMBICORT 160/4.5 MCG INHALER 2 PUFF INH ×2 (08:19→19:43)
--- NOTE | 2025-02-08 08:49 | W.PN.HOSP.TC ---
Today's Communication/Plan
-
See plan
Assessment / Plan
Assessment / Plan
Physical exam:
General: Acutely ill. No acute distress.
HEENT: Normocephalic, Atraumatic and dry mucous Membranes. Exophthalmus present.
Respiratory: Clear to Auscultation; Negative Wheezes, Rales or Rhonchi
Cardiac: Regular Rhythm and S1/S2
GI: Soft, Nontender and Nondistended
Musculoskeletal: No Clubbing, No Cyanosis. Bilateral lower extremity trace edema present
Neuro: Awake, Alert and Oriented, no neurological deficit
Psych: Calm
A/P:
Generalized weakness:
Abnormal pituitary axis hormones levels last admission so will repeat this hospitalization
TSH normal
Will check cortisol levels in a.m.
MRI of the brain pending
PT eval
EVITA:
Continue IV fluids but change composition of maintenance fluids
Avoid nephrotoxic
Repeat renal function in a.m.
Alcohol use disorder:
Continue MSA protocol
Anemia:
Likely dilutional but given significant drop repeated hemoglobin and remained stable
Transaminitis:
Probably alcohol related
Trend LFTs
Depression anxiety:
Continue antidepressant
Hypomagnesemia:
Replete 4 g IV magnesium sulfate
Trend in a.m.
DVT prophylaxis:
Heparin SQ
CODE STATUS:
Full code
Anticipated Discharge: 24 - 48 hours
Subjective/Interval History
-
Date of Service: February 08, 2025
Patient with generalized weakness. Patient admits having a lot of stressors lately.
Objective Data
-
Labs:
Laboratory Results
02/07/25 02/08/25
22:35 06:13
WBC 8.8 5.5
Hgb 10.1 L 8.6 L
Hct 30.9 L 26.4 L
Plt Count 229 148 D
Sodium 131 L 137
Potassium 3.2 L 3.8
Chloride 100 110 H
Carbon Dioxide 22 22
BUN 9 8
Creatinine 1.9 H 1.3 H
Glucose 106 H 73
Calcium 8.3 L 7.3 L
Total Bilirubin 0.9 1.1
AST 152 H 104 H
ALT 58 H 43 H
Alkaline Phosphatase 363 H 317 H
Vital Signs:
Vital Signs
Temp Pulse Resp BP Pulse Ox
97.9 F 71 14 129/88 96
02/08/25 07:17 02/08/25 08:22 02/08/25 08:22 02/08/25 07:17 02/08/25 08:22
[2025-02-08] MEDS: WELLBUTRIN XL (24 hour extended release) 300 MG PO (09:10)
[2025-02-08] MEDS: FOLVITE 1 MG PO (09:10)
[2025-02-08] MEDS: THIAMINE INJECTION 200 MG IV ×2 (09:11→20:20)
[2025-02-08] MEDS: HEPARIN 5000 UNITS SC ×3 (09:11→23:12)
[2025-02-08 10:05] LABS: Hematocrit 27.6 % (37.0-47.0); Hemoglobin 8.8 g/dL (12.0-16.0)
[2025-02-08] MEDS: MAGNESIUM SULFATE 100 IV (11:03)
--- NOTE | 2025-02-08 15:47 | CM ---
Patient seen at bedside
IA completed
CM consult completed-substance abuse counseling
Patient declined [facility]
Patient states lives with who has been in [facility] since November, her son who currently in [place]. States her oldest son at [facility]. Lives in a multi story home, 10 [address], flight of stairs to bedroom/bathroom.
PLOF: Independent, works, drives
DME: [employer]
Denies VN/rehab
PT eval pending
States insecurities with utilities. [employer] information given to patient
Euegnia from [facility] following patient
Patient states she has [place] BC/BS, does not have card with her
PCP: Dr. Esparza
Pharmacy: [address], [place]
PLAN: home, await PT eval, CM to continue to follow for needs
[2025-02-08] MEDS: APRESOLINE 10 MG IV (17:45)
[2025-02-08] MEDS: BENADRYL 25 MG PO (22:02)
--- NOTE | 2025-02-09 03:01 | DOWNTIME ---
There was a [employer] Downtime on 02/09/2025 from 0100 to 02/09/2025 at 0255. Downtime documentation of patient's care, including medication administrations, has been reconciled in the electronic record per guidelines. Refer to the
patient's paper chart under the miscellaneous tab to see printed paper medication records and downtime forms.
[2025-02-09 03:02] VITALS: BP 144/76
[2025-02-09] MEDS: NSS 1000 IV (05:52)
[2025-02-09] MEDS: TYLENOL 650 MG PO ×2 (05:56→21:14)
[2025-02-09 06:00] VITALS: BMI 29.4
[2025-02-09 06:39] LABS: Hematocrit 24.2 % (37.0-47.0); Hemoglobin 8.1 g/dL (12.0-16.0); Mean Corp Hgb Conc. 33.5 g/dL (33.0-37.0); Mean Corpuscular Volume 98.0 fL (81.0-99.0); Nucleated Red Blood Cells % 0 %; Platelet Count 135 10^3/uL (130-400); Red Cell Dist. Width 13.5 % (11.5-14.5)
[2025-02-09 06:41] LABS: INR 1.27; PT 16.2 Sec (11.4-14.6)
[2025-02-09] MEDS: SYMBICORT 160/4.5 MCG INHALER 2 PUFF INH ×2 (07:21→19:19)
[2025-02-09 07:30] VITALS: BP 143/84
[2025-02-09 07:42] LABS: ALT (SGPT) 42 U/L (0-35); AST (SGOT) 108 U/L (14-36); Albumin 2.6 g/dl (3.5-5.0); Alkaline Phosphatase 331 U/L (38-126); Blood Urea Nitrogen 7 mg/dl (7-17); Calcium 7.9 mg/dl (8.4-10.2); Carbon Dioxide 23 mmol/L (22-30); Chloride 111 mmol/L (98-107); Estimated Creatinine Clearance 91 ml/min; Glucose 78 mg/dl (70-99); Magnesium 1.9 mg/dl (1.6-2.3); Potassium 3.8 mmol/L (3.5-5.1); Sodium 138 mmol/L (135-145); Total Protein 4.9 g/dl (6.3-8.2); eGFR > 60.00
[2025-02-09 08:08] LABS: Cortisol, Random 10.5 ug/dl
[2025-02-09] MEDS: FOLVITE 1 MG PO (08:11)
[2025-02-09] MEDS: THIAMINE INJECTION 200 MG IV ×2 (08:11→19:48)
[2025-02-09] MEDS: WELLBUTRIN XL (24 hour extended release) 300 MG PO (08:11)
[2025-02-09] MEDS: HEPARIN 5000 UNITS SC ×3 (08:11→23:27)
[2025-02-09] MEDS: ATIVAN 1 MG PO ×3 (09:53→20:25)
[2025-02-09] MEDS: MAGNESIUM OXIDE 400 MG PO ×2 (09:53→19:48)
[2025-02-09 11:45] VITALS: BP 137/91
--- NOTE | 2025-02-09 11:55 | W.PN.HOSP.TC ---
Addendum entered and electronically signed by Jai Cowart MD 02/09/25 14:48:
Alcohol abuse with withdrawal
Original Note:
Today's Communication/Plan
-
Psych eval. MSA protocol.
Assessment / Plan
Assessment / Plan
Physical exam:
General: Acutely ill. No acute distress.
HEENT: Normocephalic, Atraumatic and dry mucous Membranes. Exophthalmus present.
Respiratory: Clear to Auscultation; Negative Wheezes, Rales or Rhonchi
Cardiac: Regular Rhythm and S1/S2
GI: Soft, Nontender and Nondistended
Musculoskeletal: No Clubbing, No Cyanosis. Bilateral lower extremity trace edema present
Neuro: Awake, Alert and Oriented, no neurological deficit
Psych: Calm
A/P:
Generalized weakness:
Abnormal pituitary axis hormones levels last admission so will repeat this hospitalization
TSH normal, 2.25
Cortisol level relatively decent at 10.5
MRI of the brain with possible pituitary microadenoma-hormonal testing normal so far so can follow-up as outpatient.
PT eval
Discussed about the possibility of psych evaluation and she is agreeable. Psych consult today-discussed with psych via [place] text.
EVITA:
Resolved
Stop IV fluid
Creatinine down to 0.8 today
Alcohol use disorder:
Continue MSA protocol
Anemia:
Likely dilutional
Hemoglobin continues to remain stable
Transaminitis:
Likely alcohol related
Depression anxiety:
Continue antidepressant but have psych evaluate her as mentioned above.
Hypomagnesemia:
Repleted adequately
DVT prophylaxis:
Heparin SQ
CODE STATUS:
Full code
Total time spent on today's encounter was 35 minutes which included time spent in counseling the patient/family regarding diagnosis and treatment plan as listed above, goals of care, and symptom management. Case was discussed with nursing staff,
specialists, and care coordinators/case management. All labs and imaging personally reviewed by me. Remainder the time spent in detailed review of previous records, lab data, imaging, and other medical provider documentation.
Anticipated Discharge: Within 24 hours
Subjective/Interval History
-
Date of Service: February 09, 2025
Patient feels anxious and a lot of stressful circumstances. No chest pain or shortness of breath.
Objective Data
-
Labs:
Laboratory Results
02/09/25
06:15
WBC 5.0
Hgb 8.1 L
Hct 24.2 L
Plt Count 135
PT 16.2 H
INR 1.27
Sodium 138
Potassium 3.8
Chloride 111 H
Carbon Dioxide 23
BUN 7
Creatinine 0.8
Glucose 78
Calcium 7.9 L
Total Bilirubin 2.0 H
AST 108 H
ALT 42 H
Alkaline Phosphatase 331 H
Vital Signs:
Vital Signs
Temp Pulse Resp BP Pulse Ox
98.6 F 105 16 143/84 96
02/09/25 07:30 02/09/25 07:30 02/09/25 07:30 02/09/25 07:30 02/09/25 07:30
I&O
02/08/25 02/09/25 02/10/25
06:59 06:59 06:59
Intake Total 1919
Balance 1919
--- NOTE | 2025-02-09 12:33 | PN.CDI ---
CDI
- -
CDI:
Physician Documentation Request
Admit Date: 02/08/25 01:08
Dear Doctor Sofya,
Please review the following and provide your response in the progress notes.
Clinical Indicators:
- Patient admit generalized weakness with EVITA
- 02/07 H&P 'typically drinks 4-5 glasses of wine per week; however, she notes that this 'may be more' recently'
- 02/08 PN 'Alcohol use disorder'
- On admission, alcohol 114
- MSAS 3-6
- 1mg IV lorazepam given x 4
If possible, please provide further specificity as outlined below:
Alcohol use with withdrawal
Alcohol use only
Alcohol abuse with withdrawal
Other (please specify)
Use of terms such as suspected, likely, concern for, or probable (associated with a specific diagnosis that is being evaluated, monitored, or treated as if it exists) are acceptable and can be coded in the inpatient setting, when documented at the
time of discharge.
Thank you,
Krystyna Deshpande RN
CDI Specialist
Please use your independent medical judgment in providing your response.
[2025-02-09] MEDS: COZAAR 100 MG PO (13:11)
[2025-02-09 15:15] VITALS: BP 134/94; BP 143/105; BP 147/100; PULSE 113; PULSE 121; PULSE 125
[2025-02-09 19:00] VITALS: BP 147/98
[2025-02-09] MEDS: BENADRYL 25 MG PO (21:14)
[2025-02-09] MEDS: TUMS CHEWABLE TABLET 400 MG PO (22:16)
[2025-02-09] MEDS: NSS IV (22:18)
--- NOTE | 2025-02-09 22:38 | CS.PSYCHR ---
Consult Summary - Psychiatry
-
pt seen this afternoon in consultation for depression and alcohol use disorder
50 yo woman admitted via ED for weakness and fatigue, found to have elevated creatinine as well as increased LFTs and alcohol of 114. Pt acknowledges drinking to excess in order to cope with her many life stressors.
12 yo son is currently hospitalized at [facility] for oppositional defiant disorder and ADHD. He is chronically truant, unruly, and recently pushed mother down stairs. He is facing criminal charges for a variety of things, though pt
is determined to try to have him come home.
is currently hospitalized here (on same floor) for continuing care for his complicated renal cell cancer. Had nephrectomy, found to have lumbar fx post surgery ('from moving him' per pt) then repeated surgeries to back to restore function.
Last surgery developed abscess which is currently being treated here prior to intitation of chomotherapy (all of this is pt's understanding.) now applying for long-term disability, still awaiting short term approval.
Pt reports drinking heavily since college ([employer]) but much worse over past several months with all of these stressors. States drinks 2-3 glasses per day usually, but now has doubled amount.
No prior psychiatric contact, though has been getting antidepressants from PCP. Currently on wellbutrin, states she had had lexapro added in past but could not tolerate side effects.
Medical history of hypertenion and asthma
Family history of alcohol use disorder in father and grandfather.
One other child, son 18 who is freshman at [employer] 'no problems with him at all'
Parents nearby, supportive but older (cannot help with son) same with brother
Estranged from sister due to family rift over sister and her taking advantage of parents' generosity, antisemitism (brother's is [employer].)
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 Financially ok for now.
On mental status exam pt is lying in bed, easily cries when asked about her stressors. Freely admits to depression, though denies suicidal ideation. No signs of psychosis, no cognitive impairment. Insight and judgment limited--pt not sure she wants
to achieve sobriety.
Impression: alcohol use disorder, severe major depression, recurrent
Would continue current meds, will attempt motivational interviewing techniques to address denial of effects of alcohol (pt wishes to begin psychiatric treatment but has limited understanding of need for sobriety for this.)
[2025-02-09 23:00] VITALS: BP 135/103
[2025-02-10] MEDS: TYLENOL 650 MG PO (01:19)
[2025-02-10 03:00] VITALS: BP 138/86
[2025-02-10 06:00] VITALS: BMI 29.9
[2025-02-10 06:35] LABS: Hematocrit 23.7 % (37.0-47.0); Hemoglobin 7.9 g/dL (12.0-16.0)
[2025-02-10 06:57] LABS: Blood Urea Nitrogen 5 mg/dl (7-17); Calcium 8.4 mg/dl (8.4-10.2); Carbon Dioxide 23 mmol/L (22-30); Chloride 113 mmol/L (98-107); Estimated Creatinine Clearance 105 ml/min; Glucose 79 mg/dl (70-99); Magnesium 1.4 mg/dl (1.6-2.3); Potassium 3.4 mmol/L (3.5-5.1); Sodium 138 mmol/L (135-145); eGFR > 60.00
[2025-02-10] MEDS: SYMBICORT 160/4.5 MCG INHALER 2 PUFF INH (07:14)
[2025-02-10 07:30] VITALS: BP 159/105
--- NOTE | 2025-02-10 09:09 | W.PN.HOSP.TC ---
Today's Communication/Plan
-
Discharge planning today
Assessment / Plan
Assessment / Plan
Physical exam:
General: No acute distress.
HEENT: Normocephalic, Atraumatic and dry mucous Membranes. Exophthalmus present.
Respiratory: Clear to Auscultation; Negative Wheezes, Rales or Rhonchi
Cardiac: Regular Rhythm and S1/S2
GI: Soft, Nontender and Nondistended
Musculoskeletal: No Clubbing, No Cyanosis. Bilateral lower extremity trace edema present
Neuro: Awake, Alert and Oriented, no neurological deficit
Psych: Calm
A/P:
Generalized weakness:
Abnormal pituitary axis hormones levels last admission so will repeat this hospitalization
TSH normal, 2.25
Cortisol level relatively decent at 10.5
MRI of the brain with possible pituitary microadenoma-hormonal testing normal so far so can follow-up as outpatient. Discussed with exterior interior specialist and I will have her follow-up as outpatient with her, Dr. Cheema.
Psych consult appreciated. Discussed with psychiatry who is rounding today.
EVITA:
Resolved
Stop IV fluid
Creatinine down to 0.7 today
Alcohol use disorder:
Continue MSA protocol
Anemia:
Likely dilutional
Hemoglobin to f/u in am
Transaminitis:
Likely alcohol related
Depression anxiety:
Continue antidepressant
Hypomagnesemia:
Replete and trend outpatient
Hypokalemia:
Replete and trend outpatient
DVT prophylaxis:
Heparin SQ
CODE STATUS:
Full code
Total time spent on today's encounter was 35 minutes which included time spent in counseling the patient/family regarding diagnosis and treatment plan as listed above, goals of care, and symptom management. Case was discussed with nursing staff,
specialists, and care coordinators/case management. All labs and imaging personally reviewed by me. Remainder the time spent in detailed review of previous records, lab data, imaging, and other medical provider documentation.
Anticipated Discharge: Today
Subjective/Interval History
-
Date of Service: February 10, 2025
Patient feels well. She still not interested in alcohol rehab. She is glad talked to the psychiatrist last evening.
Objective Data
-
Labs:
Laboratory Results
02/10/25
06:16
Hgb 7.9 L
Hct 23.7 L
Sodium 138
Potassium 3.4 L
Chloride 113 H
Carbon Dioxide 23
BUN 5 L
Creatinine 0.7
Glucose 79
Calcium 8.4
Vital Signs:
Vital Signs
Temp Pulse Resp BP Pulse Ox
98.4 F 112 16 159/105 100
02/10/25 07:30 02/10/25 07:30 02/10/25 07:30 02/10/25 07:30 02/10/25 07:30
I&O
02/09/25 02/10/25 02/11/25
06:59 06:59 06:59
Intake Total 1919 720 / 720
Balance 1919 720 / 720
[2025-02-10] MEDS: COZAAR 100 MG PO (09:16)
[2025-02-10] MEDS: MAGNESIUM OXIDE 400 MG PO (09:16)
[2025-02-10] MEDS: FOLVITE 1 MG PO (09:16)
[2025-02-10] MEDS: WELLBUTRIN XL (24 hour extended release) 300 MG PO (09:17)
[2025-02-10] MEDS: THIAMINE INJECTION 200 MG IV (09:17)
[2025-02-10] MEDS: HEPARIN 5000 UNITS SC (09:17)
[2025-02-10] MEDS: KCL 40 MEQ PO (09:58)
[2025-02-10] MEDS: FLUZONE (6 mos+) 2025-2026 FORMULA 0.5 ML IM (09:58)
[2025-02-10] MEDS: MAGNESIUM SULFATE 50 IV (10:00)
--- NOTE | 2025-02-10 10:07 | CM ---
patient seen at bedside
patient to be discharged today after medications
discussed [facility] again & she declines
seen by psychiatry yesterday, states she will follow up 'after holidays'
resources from [employer] previously given to patient
she requested to speak with Eugenia Callejas CM left message with Eugenia
PLAN: home, no needs, declined [facility]
drove self to hospital
--- NOTE | 2025-02-10 10:55 | W.PN.UPDATE ---
Update Note
Progress Note Update
patient seen chart reviewed. discussed with hospitalist dr diaz and dr sweet. mrs sierra was very forthcoming about the major stressors in her life that being her 's illness and her son's psychological issues. she also seems to
understand to some extent that etoh has not been helping her but rather hurting her. that said she is not ready to give it up but says she will cut back significantly. she spoke of her 's illness as a stressor for her son who seems to be
escalating in his aggression. her son will likely be placed on probation which i reassured her could be a plus for her. 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
which patient and family have already started to access ([facility] services through [employer]). i suggested strongly to her that she seek a therapist for herself. she wanted to wait until after the holidays but the reality is it will take her
some time to get in so she should begin now to try to get an appointment. she does seem aware of the dangers of continued excess etoh..she told me about electrolyte imbalance, disordered sleep, damage to liver etc but understanding the risks and
being able to slow down drinking when it has been many years her habit are not the same thing. suggested if etoh continues to be an issue she seek at least iop treatment for etoh addiction. also informed her that wellbutrin increases risk of sz and
if she is withdrawing from etoh which also carries with it a risk of sz this could be an issue. she should discuss with whoever is prescribing for her.
--- NOTE | 2025-02-10 11:04 | W.DCSUMMARY ---
Discharge Summary
Discharge Data
Date of Admission: 02/08/25
Date of Discharge: 02/10/25
-
Pending Results: No
Hospital Course
Patient 50 years old female with history of alcohol use disorder, depression, came into the hospital with generalized fatigue elevated LFTs and alcohol intoxication and subsequently withdrawal. She was noted to have several stressors prior to her
admission. Patient was started on alcohol withdrawal protocol. She had some electrolyte abnormalities and EVITA that responded to IV fluids and electrolytes were replaced. Psychiatry was consulted. Patient was kept on her antidepressants but it
was advised to exercise caution and to discuss with prescribing provider about side effects in the setting of alcohol use. Patient also have elevated LFTs related to alcohol that have been trending down. Patient also had a drop of hemoglobin but
no signs of bleeding and hemoglobin remained relatively stable after initial drop but recommended to continue to monitor as outpatient and further workup warranted as outpatient. Patient was instructed on strict alcohol cessation. She was not
interested in inpatient alcohol rehab but will be willing to discuss about outpatient rehab down the road as outpatient. Patient otherwise is hemodynamically stable and eager to go home today. She will be discharged in stable condition today.
Discharge duration: 34 minutes
Discharge Plan
-
Patient Disposition: Home (Routine Discharge)
Discharge Diagnosis/Procedures: Alcohol withdrawal. Hypokalemia. Hypomagenesemia. Anemia. Probable Pituitary adenoma.
Diet: Regular
Activity: As tolerated
Blood Work: Pleae PCP to order CBC, BMP, Magnesium within 1 week
Referrals:
Daniel Alexis MD [Active, Psychiatry] - in one to two months
Mela Vera MD [Consulting Staff, Endocrinology] - in one to two months
Referral Note: Pituitary adenoma eval
Shari Esparza CRNP [Family Provider, Internal Medicine] - in less than 1 week
Prescriptions:
Continued
lorazepam 0.5 mg Tablet
0.5 mg PO DAILYPRN PRN (Reason: anxiety)
Patient Comments:
02/10/25: filled lorazepam 0.5mg #60 tabs/30 day on 01/20/25 at [facility] [id number]. Prescriber: Shari Verdojeseniai
losartan 100 mg Tablet
100 mg PO DAILY
bupropion HCl [Wellbutrin XL] 300 mg Tablet Extended Release 24 Hr
300 mg PO DAILY
budesonide-formoterol [Symbicort] 160-4.5 mcg/actuation Hfa Aerosol Inhaler
2 inh INHALATION R BID
magnesium oxide 500 mg magnesium Tablet
500 mg PO DAILY 5 Days Qty: 5 0RF
folic acid 1 mg Tablet
1 mg PO DAILY 30 Days Qty: 30 0RF
thiamine mononitrate (vit B1) 100 mg Tablet
100 mg PO BID 30 Days Qty: 60 0RF
albuterol sulfate 90 mcg/actuation Hfa Aerosol Inhaler
2 puff INHALATION R Q6HPRN PRN (Reason: sob) Qty: 6.7 0RF
Discharge Orders:
Discharge Patient (As Directed); Ordered 02/10/25
Ordered By: Jai Cowart
Discharge Date and Time
Discharge Date/Time: 02/10/25 12:35
Print Language: [id number]
[2025-02-10 11:43] VITALS: BP 148/100
== END 2025-02-10 12:35 | disposition home or self-care (01) | DRG 683 ==
LOC: 3 WEST ACU 01:08
PROVIDERS: Emergency Medicine; ADMITTING PHYSICIAN Hospitalist; ATTENDING PHYSICIAN Hospitalist; CONSULT PHYSICIAN Psychiatry & Neurology Psychiatry; EMERGENCY PHYSICIAN Emergency Medicine; FAMILY PHYSICIAN Nurse Practitioner
DX: N17.9 Acute kidney failure, unspecified (principal); E23.0 Hypopituitarism; F33.2 Major depressive disorder, recurrent severe without psychotic features; F10.139 Alcohol abuse with withdrawal, unspecified; E87.6 Hypokalemia; F41.9 Anxiety disorder, unspecified; J44.89 Other specified chronic obstructive pulmonary disease; I10 Essential (primary) hypertension; F17.200 Nicotine dependence, unspecified, uncomplicated; Z88.6 Allergy status to analgesic agent; D53.9 Nutritional anemia, unspecified
CPT/HCPCS: 70553; 76700; 76770; 80048; 80053; 80306; 80307; 82077; 82248; 82533; 83735; 84100; 84443; 85014; 85018; 85025; 85027; 85610; 90656; 93005; 94640; 96360; 97162; 99285; 99406; A9575; G0008